=== PATIENT | male | born 1950 | race Caucasian/White ===

== ENCOUNTER 2019-06-20 10:57 | Inpatient (IN) ==
[~2019-06-20 10:57] MED LIST: IPRATROPIUM/ALBUTEROL 3 ML AMPUL.NEB NEB PRN; SCOPOLAMINE 1 PATCH PATCH TOPICAL PRN; ceFAZolin 2 GM in DEXTROSE 5% IN WATER 50 ML IV SCH
[2019-06-20 11:33] LABS: POC Blood Urea Nitrogen 35 mg/dl (8-23); POC CO2 21 mmol/L (22-30); POC Calcium, Ionized 1.13 mmol/L (1.16-1.32); POC Chloride 104 mmol/L (96-108); POC Creatinine 1.2 mg/dl (0.7-1.2); POC Glucose, Random 92 mg/dL (70-105); POC Potassium 5.1 mmol/L (3.3-5.1); POC Sodium 136 mmol/L (133-145)
[2019-06-20 11:59] LABS: Appearance,Urine CLEAR; Bilirubin,Urine NEG (NEG); Color,Urine YELLOW; Culture Indicated,Urine NO; Glucose,Urine (UA) NEGATIVE (NEG); Ketones,Urine NEG (NEG); Leukocyte Esterase,Urine NEG /uL (NEG); Nitrate,Urine NEG (NEG); Protein,Urine NEG (NEG); Specific Gravity,Urine 1.014 (1.000-1.035); Urine Blood NEG mg/dL (<0.03); Urobilinogen,Urine NEG (NEG)
[2019-06-20] MEDS ORDERED: LIDOCAINE HCL/PF 100 MG/5 ML SYRINGE IV ONE (13:28)
[2019-06-20] MEDS ORDERED: TRANEXAMIC ACID 1,000 MG/10 ML VIAL IV ONE (13:28)
[2019-06-20] MEDS ORDERED: ONDANSETRON 4 MG/2 ML VIAL IV ONE (13:28)
[2019-06-20] MEDS ORDERED: DEXAMETHASONE 10 MG/ML VIAL IV ONE (13:28)
[2019-06-20] MEDS ORDERED: KETAMINE 100 MG/ML ML IV ONE (13:28)
[2019-06-20] MEDS ORDERED: GLYCOPYRROLATE 0.2 MG/ML VIAL IV ONE (13:28)
[2019-06-20] MEDS ORDERED: PROPOFOL 200 MG/20 ML VIAL IV ONE (13:28)
[2019-06-20] MEDS ORDERED: GENTAMICIN SULFATE 800 MG/20 ML VIAL IR ONE (14:02)
[2019-06-20] MEDS ORDERED: BUPIVACAINE 0.5% 50 ML VIAL IJ ONE (14:04)
[2019-06-20] MEDS ORDERED: NALOXONE HCL 0.4 MG/ML VIAL IV PRN (14:14)
[2019-06-20] MEDS ORDERED: METHOCARBAMOL 1,000 MG/10 ML VIAL IV PRN (14:14)
[2019-06-20] MEDS ORDERED: BENZOCAINE/MENTHOL 1 LOZENGE PO PRN (14:14)
[2019-06-20] MEDS ORDERED: IPRATROPIUM/ALBUTEROL 3 ML AMPUL.NEB NEB PRN (14:14)
[2019-06-20] MEDS ORDERED: fentaNYL 100 MCG/2 ML VIAL IV PRN (14:14)
[2019-06-20] MEDS ORDERED: FLUMAZENIL 0.1 MG/ML ML IV PRN (14:14)
[2019-06-20] MEDS ORDERED: ACETAMINOPHEN 1,000 MG/100 ML BOTTLE IV ONE (14:14)
[2019-06-20] MEDS ORDERED: LACTATED RINGERS 250 ML IV PRN (14:14)
[2019-06-20] MEDS ORDERED: LACTATED RINGERS 1,000 ML IV SCH (14:15)
--- NOTE | 2019-06-20 14:28 | Brief Operative Note ---
Date of procedure: 06/20/19 Pre-op diagnosis: chronic ulceration foot and heel left Post-op diagnosis: same Procedure: Left BK amputation Grafts/Implants: No Anesthesia: JENNYFER Surgeon: Barrett Abreu Wastewater Superintendent: Rakan Sanchez Estimated blood loss (cc): 50 Tourniquet Time (Minutes): 12 Specimens Removed/Pathology: none sent Condition: stable Disposition: PACU
[2019-06-20] MEDS ORDERED: 0.9 % SODIUM CHLORIDE 1,000 ML BAG IV SCH (14:30)
[2019-06-20] MEDS ORDERED: ceFAZolin 2 GM in DEXTROSE 5% IN WATER 50 ML IV SCH (14:30)
--- NOTE | 2019-06-20 15:31 | Operative Note ---
DATE OF OPERATION: 06/20/2019 PREOPERATIVE DIAGNOSIS: Chronic ulceration and infection, left forefoot and left heel. POSTOPERATIVE DIAGNOSIS: Chronic ulceration and infection, left forefoot and left heel. OPERATION: Left wniqp-cig-qape amputation. SURGEON: Barrett Abreu M.D. ANIMAL CARE ASSISTANT: Rakan Sanchez PA-C. This provider's expertise and technical skill were required throughout the case. The PA assisted with preoperative coordination, intraoperative retraction, wound closure, dressing and splint application, as well as postoperative documentation and care coordination. ANESTHESIA: General. ESTIMATED BLOOD LOSS: 50 mL TOURNIQUET TIME: 12 minutes. SUMMARY OF PROCEDURE: The patient was placed on the operating room table. All bony prominences were padded. He was intubated, and prepped and draped. A modified fishmouth incision was made over the proximal tibia, preserving about 4 fingerbreadths of bone below the tibial tubercle. Incision was taken down directly to the bone anteriorly. The dorsal/anterior flap was elevated. The osteotomies were outlined and then made. The fibula was cut about a cm above the tibia. An anterior chamfer cut was taken off the tibia. The posterior soft tissue cut was made and in oblique fashion parallel to the skin cut. The leg was then removed at this point. The popliteal artery was identified and suture ligated. The sciatic nerve was identified, injected and then cut above the level of the bone. The injection was 0.5% Marcaine. The tourniquet was let down. All bleeding points were coagulated. Two drill holes were made in the anterior tibia. 0 Vicryls were then used to myodese the posterior flap using the sutures and tying them. Several 0 Vicryls were also used to reapproximate the anterior fascia to the superficial posterior fascia. The subcutaneous tissue was then closed with interrupted buried 2-0 Monocryl. The skin was then closed with simple and mattress sutures of 2-0 Prolene. A sterile compressive dressing was applied. This was then followed by the application of a wound V.A.C. and finally a knee immobilizer. The sponge, needle count was correct. The patient tolerated the procedure well and was taken to the recovery room in stable condition. TJF:jaja Job ID: [id number] Doc ID: [id number] Barrett Abreu MD
[2019-06-20] MEDS: 0.9 % SODIUM CHLORIDE 1,000 ML IV SCH (15:55)
[2019-06-20] MEDS ORDERED: BISACODYL 10 MG SUPP.RECT PR PRN (16:46)
[2019-06-20] MEDS ORDERED: NON FORMULARY MEDICATION 1 DOSE MISCELL (Glucagon,Human Recombinant [Glucagon Emergency Ki IJ PRN (16:46)
[2019-06-20] MEDS ORDERED: ACETAMINOPHEN 500 MG TABLET PO PRN (16:46)
[2019-06-20] MEDS ORDERED: HYDROcodone/APAP 5/325MG TABLET PO PRN (16:46)
[2019-06-20] MEDS ORDERED: DEXTROSE 50% 50 ML VIAL IV PRN (17:08)
[2019-06-20] MEDS: CARVEDILOL 12.5 MG TABLET PO SCH (17:30)
[2019-06-20] MEDS: INSULIN LISPRO 1 UNIT/0.01 ML UNIT SQ SCH ×2 (17:32→22:58)
[2019-06-20] MEDS ORDERED: INSULIN GLARGINE, HUMAN 1 UNIT/0.01 ML SQ SCH (21:00)
[2019-06-20] MEDS ORDERED: ceFAZolin 1 GM VIAL IV ONE (21:00)
[2019-06-20] MEDS: NITROGLYCERIN 0.4 MG TAB.SUBL SL PRN ×3 (21:55→23:15)
[2019-06-20] MEDS ORDERED: 0.9 % SODIUM CHLORIDE 1,000 ML IV ONE (22:31)
[2019-06-20] MEDS: ATORVASTATIN 20 MG TABLET PO SCH (22:32)
[2019-06-20] MEDS: DOCUSATE SODIUM 100 MG CAPSULE PO SCH (22:34)
[2019-06-20] MEDS: DORZOLAMIDE 2% OPHTH DROPS 10ML BOTTLE OD SCH (22:40)
[2019-06-20] MEDS ORDERED: ASPIRIN 81 MG TAB.CHEW CHEWED ONE (22:42)
[2019-06-20] MEDS ORDERED: ASPIRIN 81 MG TAB.CHEW ONE (22:45)
[2019-06-20] MEDS ORDERED: ENOXAPARIN 40 MG/0.4 ML SYRINGE ONE (22:45)
[2019-06-20] MEDS: ENOXAPARIN 40 MG/0.4 ML SYRINGE SQ SCH (22:51)
--- NOTE | 2019-06-20 23:10 | Internal Medicine Consult Note ---
Medical - CN: HPI - Data of Consult Patient: new to practice Consult date: 06/20/19 Primary Care Provider: Casey Young - Consult Narrative Reason for consult: chest pain and left arm pain History of present illness: Mr. Berumen is a 68 year old M with diabetes and hypertension. Remote smoking history. 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 I was called by Dr. Abreu to evaluate chest pain. The pt had sbp 115 and had complaint left arm pain and left chest pain. He had 6/10 pain and pallor. No sweating or diff breathing. The pt took 2 NTG and pain dropped to 3/10 but he had hypotension with sbp 80. Pt started on saline bolus 1L. EKG showed old septal CT but also ST seg elevation inferior lead III. 50 mins later EKG repeated and including additional RV leads and NSSTTW changes but not meet criteria for infarct. Pain improved further 2/10 but then 10 mins later again 6/10. Pt on bolus now and has received ASA 325 mg in addition to his usual plavix. Also given 40mg lovenox. additional NTG being given now. CC: Barrett Abreu - Constitutional Constitutional: Present: as per HPI - Cardiovascular Cardiovascular: Present: chest pain at rest (occurs at rest last about a month ago. Had hx of angiogram. no stents. last echo 2014 no WMA), claudication, radiating jaw, neck or arm pain Additional comments: hx in left leg with gangrene now tx with BKA - Gastrointestinal Gastrointestinal: Absent: abdominal pain, change in bowel habits, diarrhea, melena, nausea, vomiting - Musculoskeletal Musculoskeletal: Present: as per HPI - Neurological Neurological: Present: other (hx CVA with left side dysfunction) - Endocrine Endocrine: Present: as per HPI - Hematologic/Lymphatic Hematologic/Lymphatic: Absent: easy bleeding, easy bruising Medical - CN: PMH Smoking status: Former smoker Medical - CN: Meds Home Medications Medication Instructions Recorded Confirmed Type Accu-Chek 1 each FS ACHS #30 strip 04/13/15 06/20/19 Rx Docusate Sodium [Colace] 100 mg PO BID #60 capsule 04/13/15 06/20/19 Rx HYDROcodone/APAP 5/325MG [[place] 1 tab PO Q4HP PRN #14 tab 05/30/18 06/20/19 Rx 5-325Mg] Acetaminophen [Pain Relief] 500 mg PO PRN PRN 01/31/19 06/20/19 History Ascorbate Calcium [Vitamin C] 500 mg PO DAILY 01/31/19 06/20/19 History Atorvastatin [Lipitor] 10 mg PO HS 01/31/19 06/20/19 History Calcium Carbonate/Vitamin D3 1 each PO DAILY 01/31/19 06/20/19 History [Calcium 500-Vit D3 200 Tablet] Carvedilol [Coreg] 12.5 mg PO BIDCC 01/31/19 06/20/19 History Clopidogrel Bisulfate [Plavix] 75 mg PO DAILY 01/31/19 06/20/19 History Dorzolamide 2% Ophth Drops 1 gtt OD TID 01/31/19 06/20/19 History [Trusopt 2% Ophth Drops] Ergocalciferol (Vitamin D2) 10,000 unit PO DAILY 01/31/19 06/20/19 History [Vitamin D2] Escitalopram [Lexapro] 10 mg PO DAILY 01/31/19 06/20/19 History Isosorbide Dinitrate [Isordil] 10 mg PO BID 01/31/19 06/20/19 History Latanoprost/Pf [Latanoprost 0.005% 1 gtt OU HS 01/31/19 06/20/19 History Eye Drop] Lisinopril [Zestril] 10 mg PO DAILY 01/31/19 06/20/19 History Multivit-Min/Iron/Folic Acid/K 1 each PO DAILY 01/31/19 06/20/19 History [Adults Multivitamin Tablet] Nitroglycerin [Nitrostat] 0.4 mg SL Q5M PRN 01/31/19 06/20/19 History Timolol 0.25% Ophth Drops 1 gtt OD BID 01/31/19 06/20/19 History [Timoptic 0.25% Ophth Drops] metFORMIN HCL [Metformin HCl ER] 750 mg PO DAILY 01/31/19 06/20/19 History Mupirocin Oint 2% [Bactroban Oint 1 dose TOPICAL BID #1 tube 05/03/19 06/20/19 Rx 2%] Aripiprazole [Abilify] 2 mg PO DAILY 06/04/19 06/20/19 History Bisacodyl [Dulcolax] 10 mg [place] DAILYP PRN 06/04/19 06/20/19 History Dulaglutide [Trulicity] 1.5 mg SQ WEEKLY 06/04/19 06/20/19 History Furosemide [Lasix] 40 mg PO DAILY 06/04/19 06/20/19 History Glucagon,Human Recombinant 1 mg IJ PRN PRN 06/04/19 06/20/19 History [Glucagon Emergency Kit] Insulin Glargine, Human [Lantus] 2 unit SQ HS 06/04/19 06/20/19 History Magnesium Hydroxide [Milk of 2,400 mg PO PRN PRN 06/04/19 06/20/19 History Magnesia] Potassium Chloride [Klor-Con] 20 meq PO PRN PRN 06/04/19 06/20/19 History morphine SULFATE [Morphine Sulfate] 10 mg PO PRN PRN 06/04/19 06/20/19 History traMADol HCL [Ultram] 100 mg PO PRN PRN 06/04/19 06/20/19 History Allergies Allergy/AdvReac Type Severity Reaction Status Date / Time [facility] AdvReac Mild Diarrhea Verified 06/19/19 08:59 Medical - CN: Exam - Constitutional Vitals: Temp Pulse Resp BP Pulse Ox 97.4 F 91 H 16 100/65 97 06/20/19 20:00 06/20/19 20:00 06/20/19 20:00 06/20/19 20:00 06/20/19 20:00 General appearance: average body habitus, obese (mildly) - Respiratory Respiratory exam: Present: normal respiratory exam, CTAB. Absent: chest wall tenderness - Cardiovascular Cardiovascular exam: Present: normal rate and rhythm (distant heart sounds) - GI/Abdominal GI/Abdominal exam: Present: normal bowel sounds, soft. Absent: tenderness - Extremities Exam Extremities exam: Present: normal inspection. Absent: calf tenderness Additional comments: right foot 1+ DP pulse Left BKA noted - Neurological Exam Neurological exam: Present: alert, oriented X3. Absent: altered - Psychiatric Psychiatric exam: Present: normal affect, normal mood - Skin Skin exam: Present: dry, warm Medical - CN: Result - Labs CBC & Chem 7: 06/20/19 22:44 06/20/19 22:44 Labs: Urine 06/20/19 Range/Units 11:30 Urine Color Yellow Urine Appearance Clear Urine pH 6.0 (5.0-9.0) Ur Specific [place] 1.014 (1.000-1.035) Urine Protein Neg (NEG) mg/dL Urine Glucose (UA) Negative (NEG) mg/dL - EKG Data -: EKG Interpreted by Myself (EKG initially some ST seg elevation lead III 1 box. follow up EKG ok.) Medical - CN: A/P (1) Chest pain due to myocardial ischemia Problem details: pt poor historian but shows old Anteroseptal CT by EKG. Plan for troponin and Echocardiogram. IF WMA or elevated troponin will refer for angiogram. If negative pt can follow up with lexiscan nuclear test. start ASA, and low dose lovenox. resume plavix. Status: Acute (2) S/P BKA (below knee amputation) unilateral Problem details: due to good hemostasis and compressible wound will proceed with asa and lovenox for above consulting problem Status: Acute
[2019-06-20 23:51] LABS: Basophils # (Auto) 0.01 K/mcL (0.00-0.30); Basophils % (Auto) 0.1 % (0.0-2.0); Eosinophils # (Auto) 0 K/mcL (0.00-0.70); Eosinophils % (Auto) 0 % (0.0-7.0); Granulocytes % (Auto) 96.3 % (38.0-78.0); Hematocrit 28.7 % (40.1-51.0); Hemoglobin 9.2 g/dL (13.7-17.5); Lymphocytes # (Auto) 0.29 K/mcL (1.50-4.80); Lymphocytes % (Auto) 2.8 % (15.5-49.0); Mean Corpuscular HGB Conc 32.1 g/dL (31.0-36.0); Monocytes # (Auto) 0.08 K/mcL (0.10-0.90); Monocytes % (Auto) 0.8 % (1.0-12.0); Platelet Count 261 K/mcL (140-440); WBC 10.5 K/mcL (4.50-11.00)
[2019-06-21 00:06] LABS: Blood Urea Nitrogen 44 mg/dl (8-23); Calcium 8.2 mg/dl (8.6-10.4); Carbon Dioxide 20 mmol/L (22-30); Chloride 98 mmol/L (96-108); Glomerular Filtration Rate 51; Glucose 315 mg/dL (70-105)
[2019-06-21] MEDS ORDERED: METOPROLOL TARTRATE 5 MG/5 ML VIAL IV ONE (02:08)
[2019-06-21] MEDS: METOPROLOL TARTRATE 5 MG/5 ML VIAL IV SCH ×2 (02:20→02:27)
[2019-06-21] MEDS: 0.9 % SODIUM CHLORIDE 1,000 ML IV SCH ×4 (02:20→10:40)
--- NOTE | 2019-06-21 07:23 | Operative Note ---
DATE OF OPERATION: 06/20/2019 PREOPERATIVE DIAGNOSIS: Chronic ulceration and infection left heel and forefoot. POSTOPERATIVE DIAGNOSIS: Chronic ulceration and infection left heel and forefoot. OPERATION: Left lbtto-zkm-flce amputation. SURGEON: Barrett Abreu MD CENTRAL SUPPLY ASSISTANT: Rakan Sanchez PA-C. This provider's expertise and technical skill were required throughout the case. The PA assisted with preoperative coordination, intraoperative retraction, wound closure, dressing and splint application, as well as postoperative documentation and care coordination. ANESTHESIA: General. TOURNIQUET TIME: 12 minutes. ESTIMATED BLOOD LOSS: 50 mL SUMMARY OF PROCEDURE: General anesthesia was attained. The left leg was prepped and draped. A thigh-level tourniquet was put up. A modified fishmouth incision was made with the plan being to leave about 4 fingerbreadths of bone below the tibial tubercle. The incisions were taken down to bone. The anterior incision was then developed. A dorsal flap was made by elevating the flap off of the bone. The bone was resected at the apex of the incision 4 cm above the dorsal flap. This was done with a saw. An anterior bevel was cut off the tibia as well. The fibula was cut proximal to the tibia. I then used a cake knife to make a tapered posterior incision. The popliteal artery was then suture ligated. The sciatic nerve was identified, irrigated and infiltrated with 10 mL of Marcaine and then transected above the level of the bone cut. The tourniquet was let down. Bleeding was controlled with the Bovie. The wound was thoroughly irrigated. The fascia was reapproximated superficial posterior to the anterior fascia with 0 Vicryls. The subcutaneous tissue was closed with buried 2-0 Monocryls and the skin was closed with simple mattress sutures of 2-0 Prolene. A sterile compressive dressing was applied followed by a knee immobilizer. The sponge, needle count was correct. The patient tolerated the procedure well and was taken to the recovery room in stable condition. TJF:jaja Job ID: [id number] Doc ID: [id number] Barrett Abreu MD
[2019-06-21] MEDS: INSULIN LISPRO 1 UNIT/0.01 ML UNIT SQ SCH ×3 (07:59→16:51)
[2019-06-21] MEDS ORDERED: METFORMIN HCL 750 MG PO SCH (08:00)
[2019-06-21] MEDS ORDERED: FUROSEMIDE 20 MG TABLET PO SCH (09:00)
[2019-06-21 09:43] LABS: ALT/SGPT 10 U/l (0-40); AST/SGOT 34 U/l (0-37); Albumin/Globulin Ratio 1.2 (1.0-2.3); Alkaline Phosphatase 84 U/L (39-117); Bilirubin,Total 0.2 mg/dL (0.0-1.0); Blood Urea Nitrogen 42 mg/dl (8-23); Calcium 8.2 mg/dl (8.6-10.4); Carbon Dioxide 20 mmol/L (22-30); Chloride 104 mmol/L (96-108); Globulin 2.5 gm/dL (2.2-3.7); Glomerular Filtration Rate 56; Glucose 229 mg/dL (70-105)
--- NOTE | 2019-06-21 10:28 | Orthopedic Progress Note ---
Subjective Patient information: Note initiated : 06/21/19 at 10:25 am Service Date, if different from initiated Date: [] Patient: Magdi Berumen 68 y/o M admitted on 06/20/19 for Left Below Knee Amputation with Application. Chief Complaint: [] Principal diagnosis: below the knee amputation Interval history: chest pain last night- being managed by Dr Grullon Objective Vital signs: Vital Signs Temp Pulse Resp BP Pulse Ox 06/21/19 06:43 99.3 F H 20 112/72 97 06/21/19 03:51 98.2 F 91 H 16 125/81 99 06/20/19 23:18 97.4 F 97 H 16 108/65 99 06/20/19 20:00 97.4 F 91 H 16 100/65 97 06/20/19 16:51 73 127/74 100 06/20/19 16:36 72 135/73 100 06/20/19 16:21 71 137/75 98 06/20/19 16:06 71 138/74 99 06/20/19 15:51 70 134/77 100 06/20/19 15:21 70 130/74 98 06/20/19 15:05 97.6 F 68 14 119/63 99 06/20/19 15:00 68 14 114/62 100 06/20/19 14:55 68 15 106/60 99 06/20/19 14:50 68 14 115/60 99 06/20/19 14:45 68 14 114/61 100 06/20/19 14:43 97.3 F 68 13 113/62 100 06/20/19 12:00 98.6 F 68 16 130/72 98 06/20/19 10:57 98.3 F 68 16 132/70 98 Intake and Output 06/20/19 06/21/19 06/21/19 21:59 05:59 13:59 Intake Total 1279 2278 Output Total 100 2 Balance 1179 2276 Intake: IV 219 2278 Sodium Chloride 0.9% 1,000 ml @ 2278 150 mls/hr IV .Q6H40M [facility] Rx#: [id number] Lactated Ringers 1,000 ml @ 20 119 mls/hr IV .Q24H [facility] Rx#: [id number] Oral 60 IV - Manual Only 1000 Output: # of times incontinent of urine 2 Estimated Blood Loss 100 Other: # Bowel Movements 2 Weight 198 lb 8 oz Intake & Output: Intake & Output 06/20/19 06/21/19 06/21/19 21:59 05:59 13:59 Intake Total 1279 2278 Output Total 100 2 Balance 1179 2276 Weight 198 lb 8 oz Intake: IV 219 2278 Sodium Chloride 0.9% 1,000 ml @ 2278 150 mls/hr IV .Q6H40M [facility] Rx#: [id number] Lactated Ringers 1,000 ml @ 20 119 mls/hr IV .Q24H [facility] Rx#: [id number] Oral 60 IV - Manual Only 1000 Output: # of times incontinent of urine 2 Estimated Blood Loss 100 Other: # Bowel Movements 2 Dressing: Yes clean, Yes dry, Yes intact, Yes splint in place - Labs CBC & BMP: 06/21/19 02:21 06/21/19 08:43 Labs: 06/21/19 06/20/19 02:21 22:44 Hgb 9.2 L Hct 27.4 L 28.7 L Assessment and Plan (1) Amputation below knee Chest pain being evaluated, getting echo and blood work. Not stable for discharge right now Status: Acute
[2019-06-21] MEDS: CALCIUM W/VIT D3 500 MG TABLET PO SCH (10:37)
[2019-06-21] MEDS: ESCITALOPRAM 10 MG TABLET PO SCH (10:37)
[2019-06-21] MEDS: ASCORBIC ACID 500 MG TABLET PO SCH (10:37)
[2019-06-21] MEDS: CARVEDILOL 12.5 MG TABLET PO SCH ×2 (10:37→16:46)
[2019-06-21] MEDS: ENOXAPARIN 40 MG/0.4 ML SYRINGE SQ SCH (10:37)
[2019-06-21] MEDS: CLOPIDOGREL 75 MG TABLET PO SCH (10:37)
[2019-06-21] MEDS: LISINOPRIL 5 MG TABLET PO SCH (10:37)
[2019-06-21] MEDS: ARIPIPRAZOLE 2 MG PO SCH (10:39)
[2019-06-21] MEDS: DORZOLAMIDE 2% OPHTH DROPS 10ML BOTTLE OD SCH ×3 (10:39→22:23)
[2019-06-21] MEDS: DOCUSATE SODIUM 100 MG CAPSULE PO SCH ×2 (10:40→22:23)
[2019-06-21] MEDS: ISOSORBIDE DINITRATE 10 MG TABLET PO SCH (10:54)
[2019-06-21] MEDS: MUPIROCIN OINT 2% 22GM NARES SCH (10:55)
[2019-06-21] MEDS ORDERED: MAGNESIUM HYDROXIDE 30 ML ORAL.SUSP PO PRN (13:52)
--- NOTE | 2019-06-21 13:58 | Internal Med Progress Note ---
Medical - PN: Subj Patient information: Note initiated : 06/21/19 at 1:56 pm Service Date, if different from initiated Date: [] Patient: Magdi Berumen 68 y/o M admitted on 06/20/19 for Left Below Knee Amputation with Application. Chief Complaint: [] Interval history: Patient chest pain yesterday recurred several times at 6/10 severity and was slow to resolve requiring nitroglycerin, beta-faviola, IV fluid and oxygen. This morning the patient is completely chest pain-free. He had similar episode of chest pain and May 2018 and elected not to have evaluation at that time. He went home to [facility] where he told the emergency physician that he was okay with dying this year he has underwent left BKA due to gangrene of the leg. He is hoping to get a prosthesis to walk. He continues to want DO NOT RESUSCITATE status and wants limited interventions regarding his heart. Thus far we discussed options and if he does not have further chest pain he does not want to seek intervention. He understands that if he has recurring chest pain that we cannot resolve then cardiology evaluation with either angiogram or at least noninvasive nuclear stress study would be appropriate at that time. His chest pain does appear to be coronary artery disease (angina We reviewed his echo which shows EF down to 29% from normal in 2014. Patient retired in 2011. We conclude that he had an TN between 2014 and 2018 when documented EKG shows the last large anteroseptal infarct seen on current EKGs - Constitutional Vitals: Vital Signs Temp Pulse Resp BP Pulse Ox 99.3 F H 91 H 20 112/72 97 06/21/19 06:43 06/21/19 03:51 06/21/19 06:43 06/21/19 06:43 06/21/19 06:43 Period Temp Pulse Resp BP Sys/Marrufo Pulse Ox Last 24 Hr 97.3 F-99.3 F 68-97 13-20 100-138/60-81 97-100 Intake and Output 06/20/19 06/21/19 06/21/19 21:59 05:59 13:59 Intake Total 1279 2278 Output Total 100 2 Balance 1179 2276 Weight 198 lb 8 oz Intake & Output: Intake & Output 06/20/19 06/21/19 06/21/19 21:59 05:59 13:59 Intake Total 1279 2278 Output Total 100 2 Balance 1179 2276 Weight 198 lb 8 oz Intake: IV 219 2278 Sodium Chloride 0.9% 1,000 ml @ 2278 150 mls/hr IV .Q6H40M [facility] Rx#: [id number] Lactated Ringers 1,000 ml @ 20 119 mls/hr IV .Q24H [facility] Rx#: [id number] Oral 60 IV - Manual Only 1000 Output: # of times incontinent of urine 2 Estimated Blood Loss 100 Other: # Bowel Movements 2 General appearance: average body habitus, no acute distress - Neck Neck exam: Present: normal inspection - Respiratory Respiratory exam: Present: normal respiratory exam, CTAB - Cardiovascular Cardiovascular exam: Present: normal rate and rhythm. Absent: diastolic murmur, systolic murmur, tachycardia - GI/Abdominal GI/Abdominal exam: Present: normal bowel sounds, soft. Absent: tenderness - Extremities Exam Additional comments: Left BKA noted right foot dorsal pedal pulse 1+ Medical - PN: Obj Da - Labs CBC & Chem 7: 06/21/19 02:21 06/21/19 08:43 Labs: Abnormal Lab Results 06/21/19 06/21/19 06/21/19 08:43 08:43 02:21 RBC Hgb Hct POC Hct RDW MPV Gran % Lymph % (Auto) [place] % (Auto) Gran # Lymph # (Auto) [place] # (Auto) Sodium Potassium Carbon Dioxide 20 L POC Total CO2 POC BUN BUN 42 H Creatinine 1.3 H Glucose 229 H Calcium 8.2 L POC WB Ioniz Calcium Troponin T 0.75 H* 0.05 H* Total Protein 5.5 L Albumin 3.0 L 06/21/19 06/20/19 06/20/19 02:21 22:44 22:44 RBC Hgb Hct 27.4 L POC Hct RDW MPV Gran % Lymph % (Auto) [place] % (Auto) Gran # Lymph # (Auto) [place] # (Auto) Sodium 132 L Potassium 5.6 H Carbon Dioxide 20 L POC Total CO2 POC BUN BUN 44 H Creatinine 1.4 H Glucose 315 H Calcium 8.2 L POC WB Ioniz Calcium Troponin T 0.05 H* Total Protein Albumin 06/20/19 06/20/19 22:44 11:26 RBC 3.30 L Hgb 9.2 L Hct 28.7 L POC Hct 29.0 L RDW 15.0 H MPV 11.0 H Gran % 96.3 H Lymph % (Auto) 2.8 L [place] % (Auto) 0.8 L Gran # 10.09 H Lymph # (Auto) 0.29 L [place] # (Auto) 0.08 L Sodium Potassium Carbon Dioxide POC Total CO2 21 L POC BUN 35 H BUN Creatinine Glucose Calcium POC WB Ioniz Calcium 1.13 L Troponin T Total Protein Albumin Meds: Medications Acetaminophen (Tylenol) 500 mg PO DAILYP PRN; Protocol PRN Reason: Pain Hydrocodone Bitart/Acetaminophen ([place] 10/325mg) 1 - 2 tab PO Q6HP PRN; Protocol PRN Reason: Per Pain Protocol Ascorbic Acid (Vitamin C) 500 mg PO DAILY [facility] Last Admin: 06/21/19 10:37 Dose: 500 mg Documented by: Atorvastatin Calcium (Lipitor) 10 mg PO HS [facility] Last Admin: 06/20/19 22:32 Dose: 10 mg Documented by: Bisacodyl (Dulcolax) 10 mg [place] DAILYP PRN PRN Reason: Constipation Calcium/Vitamin D (Calcium W/Vit D3) 500 mg PO DAILY [facility] Last Admin: 06/21/19 10:37 Dose: 500 mg Documented by: [facility]il[facility] ([facility]g) [facility] Clopidogrel Bisulfate (Plavix) 75 mg PO DAILY [facility] Last Admin: 06/21/19 10:37 Dose: 75 mg Documented by: Dextrose (Dextrose 50%) 25 ml IV UD PRN PRN Reason: Hypoglycemia Diagnostic Test (Pha) (Accu-Chek) 1 each FS ACHS [facility] Last Admin: 06/21/19 12:11 Dose: 1 each Documented by: Docusate Sodium (Colace) 100 mg PO BID [facility] Last Admin: 06/21/19 10:40 Dose: Not Given Documented by: Dorzolamide HCl (Trusopt 2% Ophth Drops) 1 gtt OD TID [facility] Last Admin: 06/21/19 10:39 Dose: Not Given Documented by: Enoxaparin Sodium (Lovenox) 40 mg SQ DAILY [facility] Last Admin: 06/21/19 10:37 Dose: 40 mg Documented by: Escitalopram Oxalate (Lexapro) 10 mg PO DAILY [facility] Last Admin: 06/21/19 10:37 Dose: 10 mg Documented by: Insulin Human Lispro (Humalog) 0 unit SQ ACHS [facility]; Protocol Last Admin: 06/21/19 07:59 Dose: 6 unit Documented by: Iron Carb/Multivit/[place]/Folic Acid (Multivitamin W/Minerals) 1 tab PO DAILY [facility] Isosorbide Dinitrate (Isordil) 10 mg PO BID [facility] Last Admin: 06/21/19 10:54 Dose: 10 mg Documented by: Latanoprost (Xalatan Ophth Drops) 1 gtt OU HS [facility] Lisinopril (Zestril) 10 mg PO DAILY [facility] Last Admin: 06/21/19 10:37 Dose: 10 mg Documented by: Magnesium Hydroxide (Milk Of Magnesia) 30 ml PO HSP PRN PRN Reason: Constipation Morphine Sulfate (Morphine) 2 - 6 mg IV Q1HP PRN; Protocol PRN Reason: Per Pain Protocol Last Admin: 06/21/19 00:22 Dose: 2 mg Documented by: Mupirocin (Bactroban Oint 2%) 1 dose NARES BID [facility] Last Admin: 06/21/19 10:55 Dose: 1 dose Documented by: Nitroglycerin (Nitrostat) 0.4 mg SL Q5M PRN PRN Reason: Chest Pain Last Admin: 06/20/19 23:15 Dose: 0.4 mg Documented by: Non-Formulary Medication (Dulaglutide [Trulicity]) 1.5 mg SQ WEEKLY [facility] Metformin Hcl Er 750 (Mg Tablet) 1 dose PO [facility] Last Admin: 06/21/19 10:38 Dose: Not Given Documented by: Aripiprazole [ (Abilify] 2 Mg Tablet) 1 dose PO DAILY [facility] Last Admin: 06/21/19 10:39 Dose: Not Given Documented by: Timolol Maleate (Timoptic 0.25% Ophth Drops) 1 gtt OD BID [facility] Vitamin D (Vitamin D3) 10,000 unit PO DAILY [facility] Medical - PN: A/P - Time Spent With Patient Total time spent is greater than 50% in coordination of care (as documented) at patient's floor/unit and/or counseling patient: Greater than 35 minutes (1) Chest pain due to myocardial ischemia Problem details: pt poor historian but shows old Anteroseptal TN by EKG. Plan for troponin and Echocardiogram. Troponin reached 0.75 will trend to a peak. This appears to be gwen-infarct ischemia or small vessel problem based on mild EKG abnormalities beyond the large noted old infarct. The patient has large anteroseptal infarct by echocardiogram. We discussed that angiogram would be appropriate if he desires coronary revascularization. He is not sure that he wants that. If he desires conservative therapy then we can treat him medically as long as he is able to be managed medically. Recurring chest pain requiring hospitalization would necessitate cardiology investigation with angiogram or at minimum noninvasive stress test with nuclear imaging Status: Acute Current Visit: Yes (2) S/P BKA (below knee amputation) unilateral Problem details: due to good hemostasis and compressible wound will proceed with asa and lovenox for above consulting problem. Plan discussed with Dr. Abreu this morning Status: Acute Current Visit: Yes (3) Diabetes mellitus, type 2 Problem details: Creatinine elevated making metformin more risky Status: Chronic Assessment and plan: We will hold metformin for now. Continue with sliding scale insulin and diabetic diet Current Visit: No Medical - PN: Qual - VTE Deep Vein Thrombosis/Pulmonary Embolism Present on Admission: No
[2019-06-21] MEDS: HYDROcodone/APAP 10/325MG TABLET PO PRN (16:46)
[2019-06-21] MEDS ORDERED: NALOXONE HCL 0.4 MG/ML VIAL IV PRN (19:07)
[2019-06-21] MEDS ORDERED: 0.9 % SODIUM CHLORIDE 500 ML IV ONE (19:07)
--- NOTE | 2019-06-21 19:54 | Internal Med Progress Note ---
Medical - PN: Subj Patient information: Note initiated : 06/21/19 at 7:51 pm Service Date, if different from initiated Date: [] Patient: Magdi Berumen 68 y/o M admitted on 06/20/19 for Left Below Knee Amputation with Application. Chief Complaint: [] Interval history: called to rapid response. Pt hard to arouse and sbp 75. Pt responded to IVF and did arouse. ABG ok ph 7.35, PCO2 45 PO2 82. EKG sinus and not changed. old anterior infarct. Pt initially drowsy and thought he was at [facility]. Pupil 7mm r 3mm left. repeat questioning pt oriented to [facility] may and BK. slow responses initially. - Constitutional Vitals: Vital Signs Temp Pulse Resp BP Pulse Ox 98.1 F 70 10 L 71/40 97 06/21/19 19:23 06/21/19 19:23 06/21/19 19:23 06/21/19 19:23 06/21/19 19:23 Period Temp Pulse Resp BP Sys/Marrufo Pulse Ox Last 24 Hr 97.4 F-99.3 F 70-97 10-20 71-125/40-81 96-100 Intake and Output 06/21/19 06/21/19 06/21/19 05:59 13:59 21:59 Intake Total 2278 1000 Output Total 2 Balance 2276 1000 Weight 208 lb Patient Weight 06/22/19 05:59 Weight 208 lb Intake & Output: Intake & Output 06/21/19 06/21/19 06/21/19 05:59 13:59 21:59 Intake Total 2278 1000 Output Total 2 Balance 2276 1000 Weight 208 lb Intake: IV 2278 1000 Sodium Chloride 0.9% 1,000 ml @ 2278 1000 150 mls/hr IV .Q6H40M BLAS Rx#: [id number] Output: # of times incontinent of urine 2 Other: Meal Breakfast Percent of Meal Consumed 25% Urine Color Bright Yellow Urine Odor Strong # Voids 2 # Bowel Movements 2 - Eye Pupils: Present: unequal Additional comments: 7mm right 3mm left - Respiratory Respiratory exam: Present: normal respiratory exam - Cardiovascular Cardiovascular exam: Present: normal rate and rhythm - Neurological Exam Neurological exam: Present: alert Additional comments: speech clear but befuddled initially JAUN - Psychiatric Psychiatric exam: Present: flat affect, normal mood Medical - PN: Obj Da - Labs CBC & Chem 7: 06/21/19 02:21 06/21/19 08:43 Labs: Abnormal Lab Results 06/21/19 06/21/19 06/21/19 17:38 08:43 08:43 RBC Hgb Hct POC Hct RDW MPV Gran % Lymph % (Auto) [place] % (Auto) Gran # Lymph # (Auto) [place] # (Auto) Sodium Potassium Carbon Dioxide 20 L POC Total CO2 POC BUN BUN 42 H Creatinine 1.3 H Glucose 229 H Calcium 8.2 L POC WB Ioniz Calcium Troponin T 1.91 H* 0.75 H* Total Protein 5.5 L Albumin 3.0 L 06/21/19 06/21/19 06/20/19 02:21 02:21 22:44 RBC Hgb Hct 27.4 L POC Hct RDW MPV Gran % Lymph % (Auto) [place] % (Auto) Gran # Lymph # (Auto) [place] # (Auto) Sodium Potassium Carbon Dioxide POC Total CO2 POC BUN BUN Creatinine Glucose Calcium POC WB Ioniz Calcium Troponin T 0.05 H* 0.05 H* Total Protein Albumin 06/20/19 06/20/19 06/20/19 22:44 22:44 11:26 RBC 3.30 L Hgb 9.2 L Hct 28.7 L POC Hct 29.0 L RDW 15.0 H MPV 11.0 H Gran % 96.3 H Lymph % (Auto) 2.8 L [place] % (Auto) 0.8 L Gran # 10.09 H Lymph # (Auto) 0.29 L [place] # (Auto) 0.08 L Sodium 132 L Potassium 5.6 H Carbon Dioxide 20 L POC Total CO2 21 L POC BUN 35 H BUN 44 H Creatinine 1.4 H Glucose 315 H Calcium 8.2 L POC WB Ioniz Calcium 1.13 L Troponin T Total Protein Albumin Meds: Medications Acetaminophen (Tylenol) 500 mg PO DAILYP PRN; Protocol PRN Reason: Pain Hydrocodone Bitart/Acetaminophen ([place] 10/325mg) 1 - 2 tab PO Q6HP PRN; Protocol PRN Reason: Per Pain Protocol Last Admin: 06/21/19 16:46 Dose: 1 tab Documented by: Ascorbic Acid (Vitamin C) 500 mg PO DAILY [facility] Last Admin: 06/21/19 10:37 Dose: 500 mg Documented by: Atorvastatin Calcium (Lipitor) 10 mg PO [facility] Last Admin: 06/20/19 22:32 Dose: 10 mg Documented by: Bisacodyl (Dulcolax) 10 mg [place] DAILYP PRN PRN Reason: Constipation Calcium/Vitamin D (Calcium W/Vit D3) 500 mg PO DAILY [facility] Last Admin: 06/21/19 10:37 Dose: 500 mg Documented by: [facility] Last Admin: 06/21/19 16:46 Dose: 18.75 mg Documented by: Clopidogrel Bisulfate (Plavix) 75 mg PO DAILY [facility] Last Admin: 06/21/19 10:37 Dose: 75 mg Documented by: Dextrose (Dextrose 50%) 25 ml IV UD PRN PRN Reason: Hypoglycemia Diagnostic Test (Pha) (Accu-Chek) 1 each FS [facility] Last Admin: 06/21/19 16:49 Dose: 1 each Documented by: Docusate Sodium (Colace) 100 mg PO BID [facility] Last Admin: 06/21/19 10:40 Dose: Not Given Documented by: Dorzolamide HCl (Trusopt 2% Ophth Drops) 1 gtt OD TID [facility] Last Admin: 06/21/19 13:57 Dose: Not Given Documented by: Enoxaparin Sodium (Lovenox) 40 mg SQ DAILY [facility] Last Admin: 06/21/19 10:37 Dose: 40 mg Documented by: Escitalopram Oxalate (Lexapro) 10 mg PO DAILY [facility] Last Admin: 06/21/19 10:37 Dose: 10 mg Documented by: Sodium Chloride (Sodium Chloride 0.9%) 500 mls @ 0 mls/hr IV .Q0M ONE Stop: 06/21/19 19:08 Insulin Human Lispro (Humalog) 0 unit SQ [facility]; Protocol Last Admin: 06/21/19 16:51 Dose: Not Given Documented by: Iron Carb/Multivit/[place]/Folic Acid (Multivitamin W/Minerals) 1 tab PO DAILY S Isosorbide Dinitrate (Isordil) 10 mg PO BID [facility] Last Admin: 06/21/19 10:54 Dose: 10 mg Documented by: Latanoprost (Xalatan Ophth Drops) 1 gtt OU HS [facility] Lisinopril (Zestril) 10 mg PO DAILY [facility] Last Admin: 06/21/19 10:37 Dose: 10 mg Documented by: Magnesium Hydroxide (Milk Of Magnesia) 30 ml PO HSP PRN PRN Reason: Constipation Morphine Sulfate (Morphine) 2 - 6 mg IV Q1HP PRN; Protocol PRN Reason: Per Pain Protocol Last Admin: 06/21/19 00:22 Dose: 2 mg Documented by: Mupirocin (Bactroban Oint 2%) 1 dose NARES BID [facility] Last Admin: 06/21/19 10:55 Dose: 1 dose Documented by: Naloxone HCl (Narcan) 0.4 mg IV ONCE PRN PRN Reason: Opiate Reversal Nitroglycerin (Nitrostat) 0.4 mg SL Q5M PRN PRN Reason: Chest Pain Last Admin: 06/20/19 23:15 Dose: 0.4 mg Documented by: Aripiprazole [ (Abilify] 2 Mg Tablet) 1 dose PO DAILY [facility] Last Admin: 06/21/19 10:39 Dose: Not Given Documented by: Dulaglutide [ Trulicity] 1.5 Mg/0. 5 Ml Pen 1 dose SC Sa@0900 [facility] Timolol Maleate (Timoptic 0.25% Ophth Drops) 1 gtt OD BID [facility] Vitamin D (Vitamin D3) 10,000 unit PO DAILY [facility] Medical - PN: A/P - Time Spent With Patient Total time spent is greater than 50% in coordination of care (as documented) at patient's floor/unit and/or counseling patient: Greater than 35 minutes (1) Right pontine CVA Problem details: due to new neurologic symtoms and abnormal pupils repeated CT head. same old right pontine CVA. no bleed and no new stroke. Status: Resolved Current Visit: No (2) Chest pain due to myocardial ischemia Problem details: pt poor historian but shows old Anteroseptal ND by EKG. Plan for troponin and Echocardiogram. Troponin reached 0.75 will trend to a peak. This appears to be gwen-infarct ischemia or small vessel problem based on mild EKG abnormalities beyond the large noted old infarct. The patient has large anteroseptal infarct by echocardiogram. We discussed that angiogram would be appropriate if he desires coronary revascularization. He is not sure that he w ants that. If he desires conservative therapy then we can treat him medically as long as he is able to be managed medically. Recurring chest pain requiring hospitalization would necessitate cardiology investigation with angiogram or at minimum noninvasive stress test with nuclear imaging trop tonight 1.97 Status: Acute Current Visit: Yes (3) S/P BKA (below knee amputation) unilateral Problem details: due to good hemostasis and compressible wound will proceed with asa and lovenox for above consulting problem. Plan discussed with Dr. Abreu this morning Status: Acute Current Visit: Yes (4) Diabetes mellitus, type 2 Problem details: Creatinine elevated making metformin more risky Status: Chronic Assessment and plan: We will hold metformin for now. Continue with sliding scale insulin and diabetic diet Current Visit: No Medical - PN: Qual - VTE Deep Vein Thrombosis/Pulmonary Embolism Present on Admission: No
--- NOTE | 2019-06-21 19:56 | Cat Scan Report ---
History: Cardiopulmonary arrest and dilated pupil TECHNIQUE: The brain was imaged without contrast at 2.5 mm intervals. Radiation exposure was limited using dose reduction technology. FINDINGS: There is an old infarct with encephalomalacia anteriorly in the right side of the belly of the jade. It measures approximately 1 cm. No acute infarct is detected. There is no hemorrhage, cerebral edema or mass effect. Patient has mild atrophy predominantly involving the frontal and temporal lobes. The ventricles are normal in size. No abnormal extra-axial fluid collection is present. Comparison with the prior brain MRI done in 2014 shows the pontine infarct was not present at that time. IMPRESSION: Moderate-sized pontine infarct with encephalomalacia No acute abnormality Dr. Grullon was called with the results Interpreted and Authenticated by: Jasson Gutierrez 06/21/19
[2019-06-21] MEDS ORDERED: 0.9 % SODIUM CHLORIDE 1,000 ML IV SCH (20:30)
[2019-06-21] MEDS: LATANOPROST OPHTH DROPS 2.5ML BOTTLE OU SCH (22:23)
[2019-06-21] MEDS: TIMOLOL 0.25% OPHTH DROPS BOTTLE 5ML OD SCH (22:23)
[2019-06-22] MEDS: MUPIROCIN OINT 2% 22GM NARES SCH ×3 (01:00→20:56)
[2019-06-22] MEDS: ATORVASTATIN 20 MG TABLET PO SCH ×2 (01:00→20:56)
[2019-06-22] MEDS: ISOSORBIDE DINITRATE 10 MG TABLET PO SCH ×3 (01:00→20:56)
[2019-06-22] MEDS: INSULIN LISPRO 1 UNIT/0.01 ML UNIT SQ SCH ×4 (01:33→20:57)
[2019-06-22] MEDS: ESCITALOPRAM 10 MG TABLET PO SCH (11:00)
[2019-06-22] MEDS: CALCIUM W/VIT D3 500 MG TABLET PO SCH (11:00)
[2019-06-22] MEDS: ENOXAPARIN 40 MG/0.4 ML SYRINGE SQ SCH (11:00)
[2019-06-22] MEDS: VITAMIN D3 5,000 UNIT CAPSULE PO SCH (11:01)
[2019-06-22] MEDS: LISINOPRIL 5 MG TABLET PO SCH (11:01)
[2019-06-22] MEDS: CLOPIDOGREL 75 MG TABLET PO SCH (11:01)
[2019-06-22] MEDS: CARVEDILOL 12.5 MG TABLET PO SCH ×2 (11:02→17:59)
[2019-06-22] MEDS: DOCUSATE SODIUM 100 MG CAPSULE PO SCH ×2 (11:02→20:56)
[2019-06-22] MEDS: ASCORBIC ACID 500 MG TABLET PO SCH (11:02)
[2019-06-22] MEDS: MULTIVIT,THER IRON,CA,FA & MIN 1 TABLET PO SCH (11:02)
[2019-06-22] MEDS: ARIPIPRAZOLE 2 MG PO SCH (11:24)
[2019-06-22] MEDS: DORZOLAMIDE 2% OPHTH DROPS 10ML BOTTLE OD SCH ×3 (11:26→23:02)
[2019-06-22] MEDS: TIMOLOL 0.25% OPHTH DROPS BOTTLE 5ML OD SCH ×2 (11:26→23:01)
--- NOTE | 2019-06-22 11:46 | Orthopedic Progress Note ---
Subjective Patient information: Note initiated : 06/22/19 at 11:44 am Service Date, if different from initiated Date: [] Patient: Magdi Berumen 68 y/o M admitted on 06/20/19 for Left Below Knee Amputation with Application. Chief Complaint: [] no new ortho issues did have medical issues over night requiring attention stable at present Principal diagnosis: below the knee amputation Objective Vital signs: Vital Signs Temp Pulse Resp BP Pulse Ox 06/22/19 07:37 98.1 F 75 14 103/68 96 06/21/19 23:31 97 06/21/19 20:39 74/48 06/21/19 20:33 78/53 06/21/19 20:24 97.5 F 77 11 L 84/53 97 06/21/19 19:23 98.1 F 70 10 L 71/40 97 06/21/19 16:00 97.4 F 85 20 95/57 98 06/21/19 12:00 98.0 F 75 20 112/60 100 Intake and Output 06/21/19 06/22/19 06/22/19 21:59 05:59 13:59 Intake Total 1500 Output Total 3 Balance 1497 Intake: IV 1500 Sodium Chloride 0.9% 1,000 ml @ 1000 500 mls/hr IV .Q2H [facility]AS Rx#: [id number] Sodium Chloride 0.9% 500 ml @ 500 Wide Open IV .Q0M ONE Rx#: [id number] Output: # of times incontinent of urine 3 Other: Meal Breakfast Percent of Meal Consumed 25% # Voids 2 # of times incontinent of 1 Bowels Weight 208 lb Intake & Output: Intake & Output 06/21/19 06/22/19 06/22/19 21:59 05:59 13:59 Intake Total 1500 Output Total 3 Balance 1497 Weight 208 lb Intake: IV 1500 Sodium Chloride 0.9% 1,000 ml @ 1000 500 mls/hr IV .Q2H BLAS Rx#: [id number] Sodium Chloride 0.9% 500 ml @ 500 Wide Open IV .Q0M ONE Rx#: [id number] Output: # of times incontinent of urine 3 Other: Meal Breakfast Percent of Meal Consumed 25% # Voids 2 # of times incontinent of 1 Bowels Dressing: Yes clean, Yes dry, Yes intact - Labs CBC & BMP: 06/21/19 02:21 06/21/19 08:43 Labs: 06/21/19 06/20/19 02:21 22:44 Hgb 9.2 L Hct 27.4 L 28.7 L Assessment and Plan - Narrative A/P Narrative: post bka no new issues continue rehab, dc planning
[2019-06-22] MEDS: HYDROcodone/APAP 10/325MG TABLET PO PRN ×3 (13:55→21:12)
--- NOTE | 2019-06-22 19:13 | Internal Med Progress Note ---
Medical - PN: Subj Patient information: Note initiated : 06/22/19 at 7:10 pm Service Date, if different from initiated Date: [] Patient: Magdi Berumen 68 y/o M admitted on 06/20/19 for Left Below Knee Amputation with Application. Chief Complaint: [] Interval history: Last night the patient was very weak and lethargic. His troponin as of yesterday had reached at 1.97 but had not peaked. Patient declined transfer for coronary intervention. He wants to have medical treatment with limited interventions. He does not want CPR. The patient today states he feels better. He is more energetic he has eaten. He does not have any chest pain. Patient is willing to resume physical therapy and I think that would be a good choice. - Constitutional Vitals: Vital Signs Temp Pulse Resp BP Pulse Ox 98.1 F 75 14 103/68 96 06/22/19 07:37 06/22/19 08:00 06/22/19 07:37 06/22/19 07:37 06/22/19 07:37 Period Temp Pulse Resp BP Sys/Marrufo Pulse Ox Last 24 Hr 97.5 F-98.1 F 70-77 10-14 71-103/40-68 96-97 Intake and Output 06/22/19 06/22/19 06/22/19 05:59 13:59 21:59 Intake Total 1500 Output Total 3 1 1 Balance 1497 -1 -1 Intake & Output: Intake & Output 06/22/19 06/22/19 06/22/19 05:59 13:59 21:59 Intake Total 1500 Output Total 3 1 1 Balance 1497 -1 -1 Intake: IV 1500 Sodium Chloride 0.9% 1,000 ml @ 1000 500 mls/hr IV .Q2H [facility] Rx#: [id number] Sodium Chloride 0.9% 500 ml @ 500 Wide Open IV .Q0M ONE Rx#: [id number] Output: # of times incontinent of urine 3 1 1 Other: Meal Lunch Dinner Percent of Meal Consumed 75% 25% Feeding Ability Needs Supervision Independent # of times incontinent of 1 Bowels General appearance: cooperative, no acute distress, obese - Respiratory Respiratory exam: Present: normal respiratory exam, CTAB - Cardiovascular Cardiovascular exam: Present: normal rate and rhythm - Extremities Exam Additional comments: Left BKA noted right leg no edema - Neurological Exam Neurological exam: Present: alert, oriented X3 - Psychiatric Psychiatric exam: Present: normal affect, normal mood Medical - PN: Obj Da - Labs CBC & Chem 7: 06/21/19 02:21 06/21/19 08:43 Labs: Abnormal Lab Results 06/21/19 06/21/19 06/21/19 17:38 08:43 08:43 RBC Hgb Hct POC Hct RDW MPV Gran % Lymph % (Auto) [place] % (Auto) Gran # Lymph # (Auto) [place] # (Auto) Sodium Potassium Carbon Dioxide 20 L POC Total CO2 POC BUN BUN 42 H Creatinine 1.3 H Glucose 229 H Calcium 8.2 L POC WB Ioniz Calcium Troponin T 1.91 H* 0.75 H* Total Protein 5.5 L Albumin 3.0 L 06/21/19 06/21/19 06/20/19 02:21 02:21 22:44 RBC Hgb Hct 27.4 L POC Hct RDW MPV Gran % Lymph % (Auto) [place] % (Auto) Gran # Lymph # (Auto) [place] # (Auto) Sodium Potassium Carbon Dioxide POC Total CO2 POC BUN BUN Creatinine Glucose Calcium POC WB Ioniz Calcium Troponin T 0.05 H* 0.05 H* Total Protein Albumin 06/20/19 06/20/19 06/20/19 22:44 22:44 11:26 RBC 3.30 L Hgb 9.2 L Hct 28.7 L POC Hct 29.0 L RDW 15.0 H MPV 11.0 H Gran % 96.3 H Lymph % (Auto) 2.8 L [place] % (Auto) 0.8 L Gran # 10.09 H Lymph # (Auto) 0.29 L [place] # (Auto) 0.08 L Sodium 132 L Potassium 5.6 H Carbon Dioxide 20 L POC Total CO2 21 L POC BUN 35 H BUN 44 H Creatinine 1.4 H Glucose 315 H Calcium 8.2 L POC WB Ioniz Calcium 1.13 L Troponin T Total Protein Albumin Meds: Medications Acetaminophen (Tylenol) 500 mg PO DAILYP PRN; Protocol PRN Reason: Pain Hydrocodone Bitart/Acetaminophen ([place] 10/325mg) 1 - 2 tab PO Q6HP PRN; Protocol PRN Reason: Per Pain Protocol Last Admin: 06/22/19 15:04 Dose: 1 tab Documented by: Ascorbic Acid (Vitamin C) 500 mg PO DAILY [facility] Last Admin: 06/22/19 11:02 Dose: 500 mg Documented by: Atorvastatin Calcium (Lipitor) 10 mg PO [facility] Last Admin: 06/22/19 01:00 Dose: Not Given Documented by: Bisacodyl (Dulcolax) 10 mg [place] DAILYP PRN PRN Reason: Constipation Calcium/Vitamin D (Calcium W/Vit D3) 500 mg PO DAILY [facility] Last Admin: 06/22/19 11:00 Dose: 500 mg Documented by: [facility] ([facility]g) [facility] Last Admin: 06/22/19 17:59 Dose: 18.75 mg Documented by: Clopidogrel Bisulfate (Plavix) 75 mg PO DAILY [facility] Last Admin: 06/22/19 11:01 Dose: 75 mg Documented by: Dextrose (Dextrose 50%) 25 ml IV UD PRN PRN Reason: Hypoglycemia Diagnostic Test (Pha) (Accu-Chek) 1 each FS [facility] Last Admin: 06/22/19 16:46 Dose: 1 each Documented by: Docusate Sodium (Colace) 100 mg PO BID [facility] Last Admin: 06/22/19 11:02 Dose: 100 mg Documented by: Dorzolamide HCl (Trusopt 2% Ophth Drops) 1 gtt OD TID [facility] Last Admin: 06/22/19 13:44 Dose: Not Given Documented by: Enoxaparin Sodium (Lovenox) 40 mg SQ DAILY [facility] Last Admin: 06/22/19 11:00 Dose: 40 mg Documented by: Escitalopram Oxalate (Lexapro) 10 mg PO DAILY [facility] Last Admin: 06/22/19 11:00 Dose: 10 mg Documented by: Insulin Human Lispro (Humalog) 0 unit SQ [facility]; Protocol Last Admin: 06/22/19 13:48 Dose: 2 unit Documented by: Iron Carb/Multivit/[place]/Folic Acid (Multivitamin W/Minerals) 1 tab PO DAILY [facility] Last Admin: 06/22/19 11:02 Dose: 1 tab Documented by: Isosorbide Dinitrate (Isordil) 10 mg PO BID [facility] Last Admin: 06/22/19 11:58 Dose: 10 mg Documented by: Latanoprost (Xalatan Ophth Drops) 1 gtt OU HS [facility] Last Admin: 01/31/20 22:23 Dose: Not Given Documented by: Lisinopril (Zestril) 10 mg PO DAILY [facility] Last Admin: 06/22/19 11:01 Dose: 10 mg Documented by: Magnesium Hydroxide (Milk Of Magnesia) 30 ml PO HSP PRN PRN Reason: Constipation Morphine Sulfate (Morphine) 2 - 6 mg IV Q1HP PRN; Protocol PRN Reason: Per Pain Protocol Last Admin: 06/22/19 01:38 Dose: 2 mg Documented by: Mupirocin (Bactroban Oint 2%) 1 dose NARES BID [facility] Last Admin: 06/22/19 11:58 Dose: 1 dose Documented by: Naloxone HCl (Narcan) 0.4 mg IV ONCE PRN PRN Reason: Opiate Reversal Nitroglycerin (Nitrostat) 0.4 mg SL Q5M PRN PRN Reason: Chest Pain Last Admin: 06/20/19 23:15 Dose: 0.4 mg Documented by: Aripiprazole [ (Abilify] 2 Mg Tablet) 1 dose PO DAILY [facility] Last Admin: 06/22/19 11:24 Dose: Not Given Documented by: Dulaglutide [ Trulicity] 1.5 Mg/0. 5 Ml Pen 1 dose SC Sa@0900 [facility] Last Admin: 06/22/19 11:27 Dose: Not Given Documented by: Timolol Maleate (Timoptic 0.25% Ophth Drops) 1 gtt OD BID [facility] Last Admin: 06/22/19 11:26 Dose: Not Given Documented by: Vitamin D (Vitamin D3) 10,000 unit PO DAILY [facility] Last Admin: 06/22/19 11:01 Dose: 10,000 unit Documented by: Medical - PN: A/P - Time Spent With Patient Total time spent is greater than 50% in coordination of care (as documented) at patient's floor/unit and/or counseling patient: 25 - 35 minutes (1) Right pontine CVA Problem details: due to new neurologic symtoms and abnormal pupils repeated CT head. same old right pontine CVA. no bleed and no new stroke. Status: Resolved Current Visit: No (2) Chest pain due to myocardial ischemia Problem details: pt poor historian but shows old Anteroseptal [place] by EKG. Plan for troponin and Echocardiogram. Troponin reached 1.97 will trend to a peak. This appears to be gwen-infarct ischemia or small vessel problem based on mild EKG abnormalities beyond the large noted old infarct. The patient has large anteroseptal infarct by echocardiogram. We discussed that angiogram would be a ppropriate if he desires coronary revascularization. Patient declined coronary intervention. He wants medical management. He is improved today. Mentation more alert. Blood pressure stronger. Status: Acute Assessment and plan: Due to lethargy and hypotension and relatively mild troponin elevation will look for other contributing factors such as adrenal failure and hypothyroidism. Labs will be sent in the morning. Current Visit: Yes (3) S/P BKA (below knee amputation) unilateral Problem details: due to good hemostasis and compressible wound will proceed with asa and lovenox for above consulting problem. Plan discussed with Dr. Abreu this morning Status: Acute Current Visit: Yes (4) Diabetes mellitus, type 2 Problem details: Creatinine elevated making metformin more risky Status: Chronic Assessment and plan: We will hold metformin for now. Continue with sliding scale insulin and diabetic diet Current Visit: No Medical - PN: Qual - VTE Deep Vein Thrombosis/Pulmonary Embolism Present on Admission: No
[2019-06-22] MEDS: LATANOPROST OPHTH DROPS 2.5ML BOTTLE OU SCH (23:02)
[2019-06-23 06:28] LABS: Basophils # (Auto) 0.04 K/mcL (0.00-0.30); Basophils % (Auto) 0.6 % (0.0-2.0); Eosinophils # (Auto) 0.24 K/mcL (0.00-0.70); Eosinophils % (Auto) 3.4 % (0.0-7.0); Granulocytes % (Auto) 66.9 % (38.0-78.0); Hematocrit 24.8 % (40.1-51.0); Hemoglobin 7.7 g/dL (13.7-17.5); Lymphocytes % (Auto) 20.1 % (15.5-49.0); Mean Cell Volume 89.9 fL (80.0-100.0); Mean Platelet Volume 11.6 fL (7.4-10.4); Monocytes # (Auto) 0.63 K/mcL (0.10-0.90); Platelet Count 207 K/mcL (140-440); RBC 2.76 M/mcL (4.63-6.08); Red Cell Distribution Width 15.5 % (11.5-14.5)
[2019-06-23 07:10] LABS: Calcium 7.8 mg/dl (8.6-10.4); Carbon Dioxide 20 mmol/L (22-30); Glomerular Filtration Rate 56; Glucose 98 mg/dL (70-105); Thyroid Stimulating Hormone 5.38 uIU/ml (0.27-5.01)
[2019-06-23 07:26] LABS: Blood Urea Nitrogen 52 mg/dl (8-23); Chloride 109 mmol/L (96-108)
[2019-06-23] MEDS: TIMOLOL 0.25% OPHTH DROPS BOTTLE 5ML OD SCH ×2 (08:19→20:56)
[2019-06-23] MEDS: DORZOLAMIDE 2% OPHTH DROPS 10ML BOTTLE OD SCH ×3 (08:19→20:56)
[2019-06-23] MEDS: INSULIN LISPRO 1 UNIT/0.01 ML UNIT SQ SCH ×5 (08:19→20:27)
[2019-06-23] MEDS: ARIPIPRAZOLE 2 MG PO SCH (08:20)
[2019-06-23] MEDS: CARVEDILOL 12.5 MG TABLET PO SCH ×3 (08:37→17:37)
[2019-06-23] MEDS: ASCORBIC ACID 500 MG TABLET PO SCH (08:37)
[2019-06-23] MEDS: ENOXAPARIN 40 MG/0.4 ML SYRINGE SQ SCH (08:37)
[2019-06-23] MEDS: VITAMIN D3 5,000 UNIT CAPSULE PO SCH (08:37)
[2019-06-23] MEDS: ESCITALOPRAM 10 MG TABLET PO SCH (08:38)
[2019-06-23] MEDS: CALCIUM W/VIT D3 500 MG TABLET PO SCH (08:38)
[2019-06-23] MEDS: DOCUSATE SODIUM 100 MG CAPSULE PO SCH ×2 (08:38→20:19)
[2019-06-23] MEDS: LISINOPRIL 5 MG TABLET PO SCH ×2 (08:38→08:53)
[2019-06-23] MEDS: MUPIROCIN OINT 2% 22GM NARES SCH ×2 (08:38→20:28)
[2019-06-23] MEDS: MULTIVIT,THER IRON,CA,FA & MIN 1 TABLET PO SCH (08:38)
[2019-06-23] MEDS: CLOPIDOGREL 75 MG TABLET PO SCH (08:38)
[2019-06-23] MEDS: ISOSORBIDE DINITRATE 10 MG TABLET PO SCH ×2 (08:44→20:20)
--- NOTE | 2019-06-23 09:02 | Orthopedic Progress Note ---
Subjective Patient information: Note initiated : 06/23/19 at 8:59 am Service Date, if different from initiated Date: [] Patient: Magdi Berumen 68 y/o M admitted on 06/20/19 for Left Below Knee Amputation with Application. Chief Complaint: [S/P LEFT BKA] PATIENT IS DOING WELL AND DENIES ANY PAIN. HE IS RESTING COMFORTABLY W/O ANY COMPLAINTS TODAY. Principal diagnosis: below the knee amputation Objective Vital signs: Vital Signs Temp Pulse Resp BP Pulse Ox 06/23/19 07:53 71 16 98 06/23/19 07:48 98.0 F 71 16 95/57 98 06/23/19 04:17 98.6 F 77 12 95/58 96 06/22/19 22:50 97.9 F 73 12 80/54 95 06/22/19 19:10 98.2 F 77 14 81/49 96 Intake and Output 06/22/19 06/23/19 06/23/19 21:59 05:59 13:59 Intake Total 150 120 Output Total 1 2 Balance -1 148 120 Intake: Oral 150 120 Output: # of times incontinent of urine 1 2 Other: Meal Dinner Percent of Meal Consumed 25% Feeding Ability Independent Urine Color Bright Yellow Urine Odor Strong Stool Size Smear Smear Stool Color Brown Brown # of times incontinent of 1 Bowels Weight 166 lb Intake & Output: Intake & Output 06/22/19 06/23/19 06/23/19 21:59 05:59 13:59 Intake Total 150 120 Output Total 1 2 Balance -1 148 120 Weight 166 lb Intake: Oral 150 120 Output: # of times incontinent of urine 1 2 Other: Meal Dinner Percent of Meal Consumed 25% Feeding Ability Independent Urine Color Bright Yellow Urine Odor Strong Stool Size Smear Smear Stool Color Brown Brown # of times incontinent of 1 Bowels Incision: Yes healing, Yes clean and dry Incision clean and dry: Yes Dressing: Yes clean, Yes dry, Yes intact Weight bearing status: non (LLE) Neurological exam IM: Yes alert, Yes oriented X3, Yes motor sensory intact, Yes neurovascular intact Extremities exam IM: Yes calf tenderness (NEGATIVE RIGHT), Yes tenderness (MILD DIFFUSE LLE), Yes Nato's sign (NEGATIVE RIGHT), Yes neurovascular intact - Labs CBC & BMP: 06/23/19 04:41 06/23/19 04:41 Labs: 06/23/19 06/21/19 06/20/19 04:41 02:21 22:44 Hgb 7.7 L 9.2 L Hct 24.8 L 27.4 L 28.7 L Assessment and Plan (1) S/P BKA (below knee amputation) unilateral PATIENT IS STABLE FROM ORTHO STANDPOINT. CONTINUE ABX AND MANAGEMENT PER HOSPITALIST. LIKELY DISCHARGE TO [facility]. Status: Acute Comment: due to good hemostasis and compressible wound will proceed with asa and lovenox for above consulting problem. Plan discussed with Dr. Abreu this morning
[2019-06-23] MEDS ORDERED: HYDROCORTISONE SOD SUCC 100 MG VIAL IV SCH (12:00)
[2019-06-23] MEDS: HYDROCORTISONE SOD SUCC 100 MG VIAL IV SCH ×2 (12:10→17:36)
[2019-06-23] MEDS ORDERED: LACTULOSE 20 GM/30 ML ORAL.SOL PO PRN (12:36)
--- NOTE | 2019-06-23 12:43 | Internal Med Progress Note ---
Medical - PN: Subj Patient information: Note initiated : 06/23/19 at 12:41 pm Service Date, if different from initiated Date: [] Patient: Magdi Berumen 68 y/o M admitted on 06/20/19 for Left Below Knee Amputation with Application. Chief Complaint: [] Interval history: Patient denies chest pain. He still states he feels fine but tired he is not sure when he last had a bowel movement but denies abdominal pain. - Constitutional Vitals: Vital Signs Temp Pulse Resp BP Pulse Ox 98.0 F 71 16 95/57 98 06/23/19 07:48 06/23/19 07:53 06/23/19 07:53 06/23/19 07:48 06/23/19 07:53 Period Temp Pulse Resp BP Sys/Marrufo Pulse Ox Last 24 Hr 97.9 F-98.6 F 71-77 12-16 80-95/49-58 95-98 Intake and Output 06/22/19 06/23/19 06/23/19 21:59 05:59 13:59 Intake Total 150 120 Output Total 1 2 Balance -1 148 120 Weight 166 lb Intake & Output: Intake & Output 06/22/19 06/23/19 06/23/19 21:59 05:59 13:59 Intake Total 150 120 Output Total 1 2 Balance -1 148 120 Weight 166 lb Intake: Oral 150 120 Output: # of times incontinent of urine 1 2 Other: Meal Dinner Percent of Meal Consumed 25% Feeding Ability Independent Urine Color Bright Yellow Urine Odor Strong Stool Size Smear Smear Stool Color Brown Brown # of times incontinent of 1 Bowels - Additional findings Additional findings: General well-developed well-nourished overweight man no acute cardiopulmonary stress he is sleeping but arouses and speaks clearly. CV regular rate and rhythm lungs clear to auscultation bilaterally abdomen positive bowel sounds soft nontender calves left BKA noted right calf no swelling. Skin warm and dry Mentation alert and oriented x3 Medical - PN: Obj Da - Labs CBC & Chem 7: 06/23/19 04:41 06/23/19 04:41 Labs: Abnormal Lab Results 06/23/19 06/23/19 06/23/19 04:41 04:41 04:41 RBC 2.76 L Hgb 7.7 L Hct 24.8 L RDW 15.5 H MPV 11.6 H Gran % Lymph % (Auto) [place] % (Auto) Gran # Lymph # (Auto) 1.40 L [place] # (Auto) Sodium Potassium Chloride 109 H Carbon Dioxide 20 L BUN 52 H Creatinine 1.3 H Glucose Calcium 7.8 L Troponin T 1.54 H* Total Protein Albumin TSH 5.38 H 06/21/19 06/21/19 06/21/19 17:38 08:43 08:43 RBC Hgb Hct RDW MPV Gran % Lymph % (Auto) [place] % (Auto) Gran # Lymph # (Auto) [place] # (Auto) Sodium Potassium Chloride Carbon Dioxide 20 L BUN 42 H Creatinine 1.3 H Glucose 229 H Calcium 8.2 L Troponin T 1.91 H* 0.75 H* Total Protein 5.5 L Albumin 3.0 L TSH 06/21/19 06/21/19 06/20/19 02:21 02:21 22:44 RBC Hgb Hct 27.4 L RDW MPV Gran % Lymph % (Auto) [place] % (Auto) Gran # Lymph # (Auto) [place] # (Auto) Sodium Potassium Chloride Carbon Dioxide BUN Creatinine Glucose Calcium Troponin T 0.05 H* 0.05 H* Total Protein Albumin TSH 06/20/19 06/20/19 22:44 22:44 RBC 3.30 L Hgb 9.2 L Hct 28.7 L RDW 15.0 H MPV 11.0 H Gran % 96.3 H Lymph % (Auto) 2.8 L [place] % (Auto) 0.8 L Gran # 10.09 H Lymph # (Auto) 0.29 L [place] # (Auto) 0.08 L Sodium 132 L Potassium 5.6 H Chloride Carbon Dioxide 20 L BUN 44 H Creatinine 1.4 H Glucose 315 H Calcium 8.2 L Troponin T Total Protein Albumin TSH Meds: Medications Acetaminophen (Tylenol) 500 mg PO DAILYP PRN; Protocol PRN Reason: Pain Hydrocodone Bitart/Acetaminophen ([facility] 10/325mg) 1 - 2 tab PO Q6HP PRN; Protocol PRN Reason: Per Pain Protocol Last Admin: 06/22/19 21:12 Dose: 2 tab Documented by: Ascorbic Acid (Vitamin C) 500 mg PO DAILY [facility] Last Admin: 06/23/19 08:37 Dose: 500 mg Documented by: Atorvastatin Calcium (Lipitor) 10 mg PO HS [facility] Last Admin: 06/22/19 20:56 Dose: 10 mg Documented by: Bisacodyl (Dulcolax) 10 mg ME DAILYP PRN PRN Reason: Constipation Calcium/Vitamin D (Calcium W/Vit D3) 500 mg PO DAILY [facility] Last Admin: 06/23/19 08:38 Dose: 500 mg Documented by: [facility] ([facility] Last Admin: 06/23/19 08:53 Dose: Not Given Documented by: Clopidogrel Bisulfate (Plavix) 75 mg PO DAILY [facility] Last Admin: 06/23/19 08:38 Dose: 75 mg Documented by: Dextrose (Dextrose 50%) 25 ml IV UD PRN PRN Reason: Hypoglycemia Diagnostic Test (Pha) (Accu-Chek) 1 each FS [facility] Last Admin: 06/23/19 12:02 Dose: 1 each Documented by: Docusate Sodium (Colace) 100 mg PO BID [facility] Last Admin: 06/23/19 08:38 Dose: 100 mg Documented by: Dorzolamide HCl (Trusopt 2% Ophth Drops) 1 gtt OD TID [facility] Last Admin: 06/23/19 08:19 Dose: Not Given Documented by: Enoxaparin Sodium (Lovenox) 40 mg SQ DAILY [facility] Last Admin: 06/23/19 08:37 Dose: 40 mg Documented by: Escitalopram Oxalate (Lexapro) 10 mg PO DAILY [facility] Last Admin: 06/23/19 08:38 Dose: 10 mg Documented by: Hydrocortisone (Cortef) 20 mg PO [facility] Hydrocortisone Sodium Succinate (Solu-Cortef) 50 mg IV Q6 [facility] Stop: 06/24/19 00:01 Last Admin: 06/23/19 12:10 Dose: 50 mg Documented by: Insulin Human Lispro (Humalog) 0 unit SQ [facility]; Protocol Last Admin: 06/23/19 12:03 Dose: Not Given Documented by: Iron Carb/Multivit/[employer] [place] [place]/Folic Acid (Multivitamin W/Minerals) 1 tab PO DAILY [facility] Last Admin: 06/23/19 08:38 Dose: 1 tab Documented by: Isosorbide Dinitrate (Isordil) 10 mg PO BID [facility] Last Admin: 06/23/19 08:44 Dose: 10 mg Documented by: Lactulose (Cephulac) 20 gm PO TIDP PRN PRN Reason: Constipation Latanoprost (Xalatan Ophth Drops) 1 gtt OU HS [facility] Last Admin: 06/22/19 23:02 Dose: Not Given Documented by: Lisinopril (Zestril) 10 mg PO DAILY [facility] Last Admin: 06/23/19 08:53 Dose: Not Given Documented by: Magnesium Hydroxide (Milk Of Magnesia) 30 ml PO [facility] PRN PRN Reason: Constipation Morphine Sulfate (Morphine) 2 - 6 mg IV Q1HP PRN; Protocol PRN Reason: Per Pain Protocol Last Admin: 06/22/19 01:38 Dose: 2 mg Documented by: Mupirocin (Bactroban Oint 2%) 1 dose NARES BID [facility] Last Admin: 06/23/19 08:38 Dose: 1 dose Documented by: Naloxone HCl (Narcan) 0.4 mg IV ONCE PRN PRN Reason: Opiate Reversal Nitroglycerin (Nitrostat) 0.4 mg SL Q5M PRN PRN Reason: Chest Pain Last Admin: 06/20/19 23:15 Dose: 0.4 mg Documented by: Aripiprazole [ (Abilify] 2 Mg Tablet) 1 dose PO DAILY [facility] Last Admin: 06/23/19 08:20 Dose: Not Given Documented by: Dulaglutide [ Trulicity] 1.5 Mg/0. 5 Ml Pen 1 dose SC Sa@0900 [facility] Last Admin: 06/22/19 11:27 Dose: Not Given Documented by: Timolol Maleate (Timoptic 0.25% Ophth Drops) 1 gtt OD BID [facility] Last Admin: 06/23/19 08:19 Dose: Not Given Documented by: Vitamin D (Vitamin D3) 10,000 unit PO DAILY [facility] Last Admin: 06/23/19 08:37 Dose: 10,000 unit Documented by: - Impressions Cortisol low at 7.87. Given his recent MS and fatigue I am going to start him on some stress dose steroids. Decrease over the next week. Anticipate that [facility] Medical - PN: A/P - Time Spent With Patient Total time spent is greater than 50% in coordination of care (as documented) at patient's floor/unit and/or counseling patient: 25 - 35 minutes (1) Right pontine CVA Problem details: due to new neurologic symtoms and abnormal pupils repeated CT head. same old right pontine CVA. no bleed and no new stroke. Status: Resolved Current Visit: No (2) Chest pain due to myocardial ischemia Problem details: pt poor historian but shows old Anteroseptal MS by EKG. Plan for troponin and Echocardiogram. Troponin reached 1.97 will trend to a peak. This appears to be gwen-infarct ischemia or small vessel problem based on mild EKG abnormalities beyond the large noted old infarct. The patient has large anteroseptal infarct by echocardiogram. We discussed that angiogram would be appropriate if he desires coronary revascularization. Patient declined coronary intervention. He wants medical management. He is improved today. Mentation more alert. Blood pressure stronger. Status: Acute Assessment and plan: Due to lethargy and hypotension and relatively mild troponin elevation will look for other contributing factors such as adrenal failure and hypothyroidism. Labs will be sent in the morning. Current Visit: Yes (3) S/P BKA (below knee amputation) unilateral Problem details: due to good hemostasis and compressible wound will proceed with asa and lovenox for above consulting problem. Plan discussed with Dr. Abreu this morning Status: Acute Current Visit: Yes (4) Diabetes mellitus, type 2 Problem details: Creatinine elevated making metformin more risky Status: Chronic Assessment and plan: We will hold metformin for now. Continue with sliding scale insulin and diabetic diet Current Visit: No (5) Adrenal insufficiency Problem details: Patient with acute non-ST segment elevation MS and hypotension. Adrenal cortisol level is too low. Will give stress dose steroids and wean off over the next week. Resume therapy and anticipate [facility] Status: Acute Current Visit: Yes Medical - PN: Qual - VTE Deep Vein Thrombosis/Pulmonary Embolism Present on Admission: No
[2019-06-23] MEDS: HYDROcodone/APAP 10/325MG TABLET PO PRN (18:06)
[2019-06-23] MEDS: ATORVASTATIN 20 MG TABLET PO SCH (20:19)
[2019-06-23] MEDS: LATANOPROST OPHTH DROPS 2.5ML BOTTLE OU SCH (20:56)
[2019-06-24] MEDS: HYDROCORTISONE SOD SUCC 100 MG VIAL IV SCH (00:59)
[2019-06-24] MEDS: HYDROcodone/APAP 10/325MG TABLET PO PRN ×2 (01:02→09:18)
--- NOTE | 2019-06-24 05:47 | Orthopedic Progress Note ---
Subjective Patient information: Note initiated : 06/24/19 at 5:43 am Service Date, if different from initiated Date: [] Patient: Magdi Berumen 68 y/o M admitted on 06/20/19 for Left Below Knee Amputation with Application. Chief Complaint: [] Principal diagnosis: below the knee amputation Interval history: Patient is feeling weak today and has some pain in his leg but otherwise is feeling okay. He denies any CP, LESLIE, nausea, vomiting, or any other acute symptoms. Objective Vital signs: Vital Signs Temp Pulse Resp BP Pulse Ox 06/24/19 03:00 97.6 F 84 16 109/70 97 06/23/19 23:51 97.6 F 88 20 110/64 96 06/23/19 19:51 98.1 F 96 H 18 117/70 98 06/23/19 16:00 99.0 F 84 16 103/62 97 06/23/19 12:00 96.7 F L 80 16 105/62 90 06/23/19 07:53 71 16 98 06/23/19 07:48 98.0 F 71 16 95/57 98 Intake and Output 06/23/19 06/23/19 06/24/19 13:59 21:59 05:59 Intake Total 120 240 Output Total 2 Balance 120 238 Intake: Oral 120 240 Output: # of times incontinent of urine 2 Other: Urine Color Bright Yellow Urine Odor Strong Stool Size Smear Stool Color Brown Weight 174 lb Patient Weight 06/24/19 05:59 Weight 174 lb Intake & Output: Intake & Output 06/23/19 06/23/19 06/24/19 13:59 21:59 05:59 Intake Total 120 240 Output Total 2 Balance 120 238 Weight 174 lb Intake: Oral 120 240 Output: # of times incontinent of urine 2 Other: Urine Color Bright Yellow Urine Odor Strong Stool Size Smear Stool Color Brown Incision: No draining Incision clean and dry: Yes Dressing: Yes clean, Yes dry, Yes intact Weight bearing status: non Extremities exam IM: No calf tenderness - Labs CBC & BMP: 06/23/19 04:41 06/23/19 04:41 Labs: 06/23/19 06/21/19 06/20/19 04:41 02:21 22:44 Hgb 7.7 L 9.2 L Hct 24.8 L 27.4 L 28.7 L Assessment and Plan (1) S/P BKA (below knee amputation) unilateral Patient doing well from below knee standpoint. May be discharged to SNF by hospitalist, follow up with orthopaedics in 2-4 days for wound vac removal. PT for transfers Needs to wear knee brace to extend beyond stump when transferring for protection of stump Follow up with PCP per hospitalists Status: Acute Comment: due to good hemostasis and compressible wound will proceed with asa and lovenox for above consulting problem. Plan discussed with Dr. Abreu this morning
[2019-06-24] MEDS: INSULIN LISPRO 1 UNIT/0.01 ML UNIT SQ SCH ×2 (07:48→12:15)
[2019-06-24] MEDS ORDERED: HYDROCORTISONE 10 MG TABLET PO SCH (08:00)
[2019-06-24] MEDS: CARVEDILOL 12.5 MG TABLET PO SCH (08:22)
[2019-06-24] MEDS: ARIPIPRAZOLE 2 MG PO SCH (08:49)
[2019-06-24] MEDS: MULTIVIT,THER IRON,CA,FA & MIN 1 TABLET PO SCH (09:00)
[2019-06-24] MEDS: CLOPIDOGREL 75 MG TABLET PO SCH (09:01)
[2019-06-24] MEDS: LISINOPRIL 5 MG TABLET PO SCH (09:02)
[2019-06-24] MEDS: CALCIUM W/VIT D3 500 MG TABLET PO SCH (09:02)
[2019-06-24] MEDS: VITAMIN D3 5,000 UNIT CAPSULE PO SCH (09:03)
[2019-06-24] MEDS: ASCORBIC ACID 500 MG TABLET PO SCH (09:04)
[2019-06-24] MEDS: DOCUSATE SODIUM 100 MG CAPSULE PO SCH (09:04)
[2019-06-24] MEDS: ENOXAPARIN 40 MG/0.4 ML SYRINGE SQ SCH (09:05)
[2019-06-24] MEDS: ESCITALOPRAM 10 MG TABLET PO SCH (09:05)
[2019-06-24] MEDS: MUPIROCIN OINT 2% 22GM NARES SCH (09:06)
[2019-06-24] MEDS: DORZOLAMIDE 2% OPHTH DROPS 10ML BOTTLE OD SCH (09:06)
[2019-06-24] MEDS: TIMOLOL 0.25% OPHTH DROPS BOTTLE 5ML OD SCH (09:06)
[2019-06-24] MEDS: ISOSORBIDE DINITRATE 10 MG TABLET PO SCH (09:17)
--- NOTE | 2019-06-24 11:04 | Discharge Summary ---
Medical - DS: Prov Patient information: Note initiated : 06/24/19 at 11:01 am Service Date, if different from initiated Date: [] Patient: Magdi Berumen 68 y/o M admitted on 06/20/19 for Left Below Knee Amputation with Application. Chief Complaint: [left leg gangrene, ischemia] Date of admission: 06/20/19 10:57 Discharge date: 06/24/19 Primary care physician: Casey Young Admitting clinician: Barrett Abreu Attending physician on admission: Barrett Abreu Consults: 06/20/19 22:18 Consult to Physician [CONS] Routine Comment: Consulting Provider: Abelardo Grullon Reason For Exam: Physician to Consult 06/23/19 17:57 Consult to Physician [CONS] Routine Comment: Consulting Provider: Peña Padron Reason For Exam: Physician to Consult Attending physician on discharge: Barrett Abreu Discharging clinician: Abelardo Grullon Medical - DS: Meds - Discharge Medications Prescriptions: Carvedilol [Coreg] 18.75 mg PO BIDCC #45 tab Hydrocortisone [Cortef] 20 mg PO QAMCC 6 Days #9 tab Active and Home Medications: Home Medications Accu-Chek 1 each FS ACHS #30 strip 04/13/15 [Rx Confirmed 06/20/19 Last Taken 06/20/19] Docusate Sodium [Colace] 100 mg PO BID #60 capsule 04/13/15 [Rx Confirmed 06/20/19 Last Taken 06/19/19] HYDROcodone/APAP 5/325MG [[place] 5-325Mg] 1 tab PO Q4HP PRN #14 tab 05/30/18 [Rx Confirmed 06/20/19 Last Taken 06/19/19] Acetaminophen [Pain Relief] 500 mg PO PRN PRN 01/31/19 [History Confirmed 06/20/19 Last Taken 1 Day Ago ~06/19/19 500 mg] Ascorbate Calcium [Vitamin C] 500 mg PO DAILY 01/31/19 [History Confirmed 06/20/19 Last Taken 06/19/19] Atorvastatin [Lipitor] 10 mg PO HS 01/31/19 [History Confirmed 06/20/19 Last Taken 06/19/19] Calcium Carbonate/Vitamin D3 [Calcium 500-Vit D3 200 Tablet] 1 each PO DAILY 01/31/19 [History Confirmed 06/20/19 Last Taken 06/19/19] Clopidogrel Bisulfate [Plavix] 75 mg PO DAILY 01/31/19 [History Confirmed 06/20/19 Last Taken 06/14/19] Dorzolamide 2% Ophth Drops [Trusopt 2% Ophth Drops] 1 gtt OD TID 01/31/19 [History Confirmed 06/20/19 Last Taken 06/19/19] Ergocalciferol (Vitamin D2) [Vitamin D2] 10,000 unit PO DAILY 01/31/19 [History Confirmed 06/20/19 Last Taken Unknown] Escitalopram [Lexapro] 10 mg PO DAILY 01/31/19 [History Confirmed 06/20/19 Last Taken 06/20/19] Isosorbide Dinitrate [Isordil] 10 mg PO BID 01/31/19 [History Confirmed 06/20/19 Last Taken 06/19/19] Latanoprost/Pf [Latanoprost 0.005% Eye Drop] 1 gtt OU HS 01/31/19 [History Confirmed 06/20/19 Last Taken 06/20/19] Lisinopril [Zestril] 10 mg PO DAILY 01/31/19 [History Confirmed 06/20/19 Last Taken Unknown] Multivit-Min/Iron/Folic Acid/K [Adults Multivitamin Tablet] 1 each PO DAILY 05/09 [History Confirmed 06/20/19 Last Taken 06/19/19] Nitroglycerin [Nitrostat] 0.4 mg SL Q5M PRN 01/31/19 [History Confirmed 06/20/19 Last Taken Unknown] Timolol 0.25% Ophth Drops [Timoptic 0.25% Ophth Drops] 1 gtt OD BID 01/31/19 [History Confirmed 06/20/19 Last Taken 06/20/19] metFORMIN HCL [Metformin HCl ER] 750 mg PO DAILY 01/31/19 [History Confirmed 06/20/19 Last Taken 06/19/19] Mupirocin Oint 2% [Bactroban Oint 2%] 1 dose TOPICAL BID #1 tube 05/03/19 [Rx Confirmed 06/20/19 Last Taken 06/19/19] Aripiprazole [Abilify] 2 mg PO DAILY 06/04/19 [History Confirmed 06/20/19 Last Taken 06/20/19] Bisacodyl [Dulcolax] 10 mg MO DAILYP PRN 06/04/19 [History Confirmed 06/20/19 Last Taken 06/19/19] Dulaglutide [Trulicity] 1.5 mg SQ WEEKLY 06/04/19 [History Confirmed 06/20/19 Last Taken 06/15/19] Furosemide [Lasix] 40 mg PO DAILY 06/04/19 [History Confirmed 06/20/19 Last Taken 06/19/19] Glucagon,Human Recombinant [Glucagon Emergency Kit] 1 mg IJ PRN PRN 06/04/19 [History Confirmed 06/20/19 Last Taken Unknown] Magnesium Hydroxide [Milk of Magnesia] 2,400 mg PO PRN PRN 06/04/19 [History Confirmed 06/20/19 Last Taken 06/19/19] Potassium Chloride [Klor-Con] 20 meq PO PRN PRN 06/04/19 [History Confirmed 06/20/19 Last Taken Unknown] morphine SULFATE [Morphine Sulfate] 10 mg PO PRN PRN 06/04/19 [History Confirmed 06/20/19 Last Taken 06/17/19] traMADol HCL [Ultram] 100 mg PO PRN PRN 06/04/19 [History Confirmed 06/20/19 Last Taken 06/19/19] Accu-Chek 1 each FS ACHS strip 06/24/19 [Rx Last Taken Unknown] Carvedilol [Coreg] 18.75 mg PO BIDCC #45 tab 06/24/19 [Rx Last Taken Unknown] Hydrocortisone [Cortef] 20 mg PO QAMCC 6 Days #9 tab 06/24/19 [Rx Last Taken Unknown] Lactulose [Cephulac] 20 gm PO TIDP PRN oral.penny 06/24/19 [Rx Last Taken Unknown] Medical - DS: Hosp Hospital Course: 68-year-old male with diabetes and coronary artery disease admitted for ischemic left foot with gangrene for elective amputation below the knee. Dr. Abreu admitted the patient and amputation was performed. Patient at increased risk due to coronary artery disease and had baseline desire for limited interventions. The amputation was necessary due to patient's ischemia and gangrene. Postoperatively the patient had chest pain. EKG showed large anteroseptal infarct but this was also present in 2017. Patient had an echocardiogram in 2014 showing normal EF and no wall motion abnormalities. Patient retired in 2011 in 2014 he had been normal echo. In 2018 he was seen in the ER with cardiac symptoms and found to have already EKG findings of a large anteroseptal infarct. Patient declined intervention or further work-up at that time and chose to go back to [facility] where he knew that he might but wanted comfort measures. Since then he has had angina taking isosorbide dinitrate daily as well as a PRN nitroglycerin sublingual typically up to 2 is successful. The patient postoperatively had more chest pain and EKG showed nonspecific ST-T wave changes and with the positive enzymes evidence of non-ST segment elevation PA. I discussed with him options of transfer to outside hospital for angiogram and cardiology consultation however he contemplated this for 2 days and made a firm decision that he did not desire that. His sister was also contacted and involved in patient remained firm that he does not want cardiac intervention. Likely his chest pain has resolved and has not recurred for the last 3 days. Additionally he had hypotension and somnolence with his MRI and cortisol level was 7 suggesting that he is adrenally insufficient. He has received stress dose steroids which will be tapered off at the halfway. Patient can return to the halfway at this time. He will resume his usual pain medication regimen. Carvedilol was increased from 12.5 mg twice a day to 18.75 mg twice a day Discharge diagnosis: Left below the knee amputation Secondary discharge diagnosis: Non-ST segment elevation PA Large anteroseptal PA old Chronic systolic congestive heart failure due to ischemic heart disease and past infarct NIDDM Adrenal insufficiency Reason for admission: Left leg gangrene and ischemia - Time Spent with Patient Total time spent providing and/or coordinating discharge services: Greater than 30 minutes Medical - DS: Exam - Constitutional Vitals: Vital Signs Temp Pulse Resp BP Pulse Ox 06/24/19 08:00 97.6 F 82 18 110/67 100 06/24/19 03:00 97.6 F 84 16 109/70 97 06/23/19 23:51 97.6 F 88 20 110/64 96 06/23/19 19:51 98.1 F 96 H 18 117/70 98 06/23/19 16:00 99.0 F 84 16 103/62 97 06/23/19 12:00 96.7 F L 80 16 105/62 90 Intake and Output 06/23/19 06/24/1906/24/20 21:59 05:59 13:59 Intake Total 240 Output Total 2 Balance 238 Intake: Oral 240 Output: # of times incontinent of urine 2 Other: Weight 174 lb - Other Additional findings: General well-developed well-nourished male in no acute cardiopulmonary distress CV regular rate and rhythm Lungs clear to auscultation bilaterally Abdomen positive bowel sounds soft nontender Left BKA noted dressing in place Right leg no edema Mentation alert and oriented x3. Patient is not lethargic this morning Medical - DS: Data Procedures and tests throughout hospitalization: Left below the knee amputation 06/20/2019 - Additional Comments EKG shows old anteroseptal PA. There is nonspecific diffuse ST-T wave changes next line echocardiogram shows large anteroseptal PA and EF of 29% Medical - DS: A/P - Patient/Caregiver Discharge Instructions Activity: as per physical therapy Diet: Low Sodium (2gm), Cardiac, Consistent Carbohydrate Prescriptions: Carvedilol [Coreg] 18.75 mg PO BIDCC #45 tab Hydrocortisone [Cortef] 20 mg PO QAMCC 6 Days #9 tab - Problem Maintenance (1) Right pontine CVA Status: Chronic Comment: due to new neurologic symtoms and abnormal pupils repeated CT head. same old right pontine CVA. no bleed and no new stroke. (2) Chest pain due to myocardial ischemia Status: Acute Comment: pt poor historian but shows old Anteroseptal PA by EKG. Plan for troponin and Echocardiogram. Troponin reached 1.97 will trend to a peak. This appears to be gwen-infarct ischemia or small vessel problem based on mild EKG abnormalities beyond the large noted old infarct. The patient has large anteroseptal infarct by echocardiogram. We discussed that angiogram would be appropriate if he desires coronary revascularization. Patient declined coronary intervention. He wants medical management. He is improved today. Mentation more alert. Blood pressure stronger. Qualifiers: Ischemic chest pain type: unstable angina pectoris Qualified Code(s): I20.0 - Unstable angina (3) S/P BKA (below knee amputation) unilateral Status: Acute Comment: due to good hemostasis and compressible wound will proceed with asa and lovenox for above consulting problem. Plan discussed with Dr. Abreu this morning (4) Diabetes mellitus, type 2 Status: Chronic Comment: Creatinine elevated making metformin more risky Qualifiers: Diabetes mellitus press tender long goods insulin use: without jail use Diabetes mellitus complication status: with other specified complication Qualified Code(s): E11.69 - Type 2 diabetes mellitus with other specified complication (5) Adrenal insufficiency Status: Acute Comment: Patient with acute non-ST segment elevation PA and hypotension. Adrenal cortisol level is too low. Will give stress dose steroids and wean off over the next week. Resume therapy and anticipate transfer back to [facility] tomorrow - Follow up Plan Follow up with: Barrett Abreu MD [Physician] - 06/26/19 3:20 pm Disposition: Xfer SNF Prognosis: Fair Rehab Potential: Fair I certify that the patient requires SNF services: Yes Overall status at discharge: patient is not back to baseline Medical - DS: Qual - VTE Deep Vein Thrombosis/Pulmonary Embolism Present on Admission: No
--- NOTE | 2019-06-24 12:44 | General Surgery Consult Note ---
History of Present Illness Patient information: Note initiated : 06/24/19 at 12:40 pm Service Date, if different from initiated Date: [] Patient: Magdi Berumen 68 y/o M admitted on 06/20/19 for Left Below Knee Amputation with Application. Chief Complaint: [] Requesting physician: Abelardo Grullon History of present illness: I saw this patient briefly. I know this patient from prior encounter at wound center and at [facility] in [place], [place]. He is recovering well form LEFT , BKA. Reviewed EHR notes. Discharge plans noted. Patient to be seen by Dr. Abreu for post surgical wound check and f/u. NO f/u at wound care center needed at this time. Will see again PRN basis. Thanks. Medications and Allergies Home Medications Medication Instructions Recorded Confirmed Type Accu-Chek 1 each FS ACHS #30 strip 04/13/15 06/20/19 Rx Docusate Sodium [Colace] 100 mg PO BID #60 capsule 04/13/15 06/20/19 Rx HYDROcodone/APAP 5/325MG [[place] 1 tab PO Q4HP PRN #14 tab 05/30/18 06/20/19 Rx 5-325Mg] Acetaminophen [Pain Relief] 500 mg PO PRN PRN 01/31/19 06/20/19 History Ascorbate Calcium [Vitamin C] 500 mg PO DAILY 01/31/19 06/20/19 History Atorvastatin [Lipitor] 10 mg PO HS 01/31/19 06/20/19 History Calcium Carbonate/Vitamin D3 1 each PO DAILY 01/31/19 06/20/19 History [Calcium 500-Vit D3 200 Tablet] Clopidogrel Bisulfate [Plavix] 75 mg PO DAILY 01/31/19 06/20/19 History Dorzolamide 2% Ophth Drops 1 gtt OD TID 01/31/19 06/20/19 History [Trusopt 2% Ophth Drops] Ergocalciferol (Vitamin D2) 10,000 unit PO DAILY 01/31/19 06/20/19 History [Vitamin D2] Escitalopram [Lexapro] 10 mg PO DAILY 01/31/19 06/20/19 History Isosorbide Dinitrate [Isordil] 10 mg PO BID 01/31/19 06/20/19 History Latanoprost/Pf [Latanoprost 0.005% 1 gtt OU HS 01/31/19 06/20/19 History Eye Drop] Lisinopril [Zestril] 10 mg PO DAILY 01/31/19 06/20/19 History Multivit-Min/Iron/Folic Acid/K 1 each PO DAILY 01/31/19 06/20/19 History [Adults Multivitamin Tablet] Nitroglycerin [Nitrostat] 0.4 mg SL Q5M PRN 01/31/19 06/20/19 History Timolol 0.25% Ophth Drops 1 gtt OD BID 01/31/19 06/20/19 History [Timoptic 0.25% Ophth Drops] metFORMIN HCL [Metformin HCl ER] 750 mg PO DAILY 01/31/19 06/20/19 History Mupirocin Oint 2% [Bactroban Oint 1 dose TOPICAL BID #1 tube 05/03/19 06/20/19 Rx 2%] Aripiprazole [Abilify] 2 mg PO DAILY 06/04/19 06/20/19 History Bisacodyl [Dulcolax] 10 mg [place] DAILYP PRN 06/04/19 06/20/19 History Dulaglutide [Trulicity] 1.5 mg SQ WEEKLY 06/04/19 06/20/19 History Furosemide [Lasix] 40 mg PO DAILY 06/04/19 06/20/19 History Glucagon,Human Recombinant 1 mg IJ PRN PRN 06/04/19 06/20/19 History [Glucagon Emergency Kit] Magnesium Hydroxide [Milk of 2,400 mg PO PRN PRN 06/04/19 06/20/19 History Magnesia] Potassium Chloride [Klor-Con] 20 meq PO PRN PRN 06/04/19 06/20/19 History morphine SULFATE [Morphine Sulfate] 10 mg PO PRN PRN 06/04/19 06/20/19 History traMADol HCL [Ultram] 100 mg PO PRN PRN 06/04/19 06/20/19 History Accu-Chek 1 each FS ACHS strip 06/24/19 Rx Carvedilol [Coreg] 18.75 mg PO BIDCC #45 tab 06/24/19 Rx Hydrocortisone [Cortef] 20 mg PO QAMCC 6 Days #9 tab 06/24/19 Rx Lactulose [Cephulac] 20 gm PO TIDP PRN oral.penny 06/24/19 Rx Allergies Allergy/AdvReac Type Severity Reaction Status Date / Time Cephalosporins AdvReac Mild Diarrhea Verified 06/21/19 08:22 Exam Temp Pulse Resp BP Pulse Ox 97.6 F 82 18 110/67 100 06/24/19 08:00 06/24/19 08:00 06/24/19 08:00 06/24/19 08:00 06/24/19 08:00 Results - Labs 06/23/19 04:41 06/23/19 04:41 All other labs normal. Assessment and Plan (1) Amputation below knee Status: Acute Priority: Medium Comment: SEE NOTE ABOVE. Patient will see Dr. Brady ARGUETA for post surgical f/u. Thanks.
--- NOTE | 2019-06-24 13:01 | Surgical Pathology Report ---
HISTOLOGY SPECIMEN MICROSCOPIC DIAGNOSIS LEFT [id number], AMPUTATION: -- ULCERATED SKIN WITH GANGRENOUS NECROSIS, SOFT TISSUE MIXED ACUTE AND CHRONIC INFLAMMATION, SKELETAL MUSCLE ATROPHY AND MILD TO MODERATE ATHEROSCLEROSIS. -- CHRONIC OSTEOMYELITIS. -- NO ACUTE OSTEOMYELITIS IDENTIFIED. -- MARGINS VIABLE. (EBD:adj) PROCEDURAL IMPRESSION Chronic ulceration foot/heel. GROSS DESCRIPTION Received fresh labeled left leg, is a left leg [id number] amputation measuring 23 cm heel to toe and 35 cm heel to proximal resection margin. The proximal margin consists cut bone margin and soft tissue; the skin margin is 4 to 12 cm distal to the proximal margin. The foot has an absent fifth digit and four ulcerated regions, three on the lateral surface and one on the medial surface. The ulcerations are schulte-brown and have maximum dimensions ranging from 0.9 to 1.7 cm. There is skin sloughing on the fourth toe. Aircraft Quality Control Inspector sections are submitted as follows: A1 - scraped marrow at resection margin; A2 - skin and soft tissue resection margin and cross sections of vessel; A3 - cross sections of ulcerated regions, following decalcification. (RLF:sln) Electronically Signed by: Natasha Fong M.D.
== END 2019-06-24 13:30 | DRG 239 ==
LOC: MEDSUR 10:57
PROVIDERS: ADMIT Orthopaedic Surgery Foot and Ankle Surgery; ATTEND Orthopaedic Surgery Foot and Ankle Surgery

== ENCOUNTER 2019-08-14 10:42 | Inpatient (IN) ==
--- NOTE | 2019-08-14 11:08 | Emergency Department Note ---
General Adult HPI - General Chief complaint: Blood Pressure Problem Stated complaint: Low blood pressure and nausea Time Seen by Provider: 08/14/19 10:45 Source: patient Mode of arrival: wheelchair - History of Present Illness HPI Narrative: 69-year-old male patient referred to the emergency department from Dr. Obregon's office with chief complaint of hypotension and nausea. Upon arrival patient's blood pressure was 93/60. He is somewhat demented but able to answer the majority of my questions. He came to us with a Nitroglycerin transdermal patch in place. This was subsequently removed upon arrival. Patient currently lives at a SNF and mentions that they put this patch in place every day. He denies any headache, retrosternal chest pain, palpitations, or abdominal pain. He denies recent illness. He denies nausea or vomiting currently. He admits to ongoing but unchanged focal weakness to the left side secondary to CVA in 2013. 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 A review of his active problems shows the following: Hyperkalemia, myocardial ischemia, below the knee amputee, adrenal insufficiency, DNR, peripheral neuropathy, type 2 diabetes, right pontine CVA, acute ischemic left anterior cerebral artery, history of SD, CHF, diabetic foot ulcers. - Related Data Home Medications Medication Instructions Recorded Confirmed Acetaminophen [Pain Relief] 500 mg PO PRN PRN 01/31/19 06/20/19 Ascorbate Calcium [Vitamin C] 500 mg PO DAILY 01/31/19 06/20/19 Atorvastatin [Lipitor] 10 mg PO HS 01/31/19 06/20/19 Calcium Carbonate/Vitamin D3 1 each PO DAILY 01/31/19 06/20/19 [Calcium 500-Vit D3 200 Tablet] Clopidogrel Bisulfate [Plavix] 75 mg PO DAILY 01/31/19 06/20/19 Dorzolamide 2% Ophth Drops 1 gtt OD TID 01/31/19 06/20/19 [Trusopt 2% Ophth Drops] Ergocalciferol (Vitamin D2) 10,000 unit PO DAILY 01/31/19 06/20/19 [Vitamin D2] Escitalopram [Lexapro] 10 mg PO DAILY 01/31/19 06/20/19 Isosorbide Dinitrate [Isordil] 10 mg PO BID 01/31/19 06/20/19 Latanoprost/Pf [Latanoprost 0.005% 1 gtt OU HS 01/31/19 06/20/19 Eye Drop] Lisinopril [Zestril] 10 mg PO DAILY 01/31/19 06/20/19 Multivit-Min/Iron/Folic Acid/K 1 each PO DAILY 01/31/19 06/20/19 [Adults Multivitamin Tablet] Nitroglycerin [Nitrostat] 0.4 mg SL Q5M PRN 01/31/19 06/20/19 Timolol 0.25% Ophth Drops 1 gtt OD BID 01/31/19 06/20/19 [Timoptic 0.25% Ophth Drops] metFORMIN HCL [Metformin HCl ER] 750 mg PO DAILY 01/31/19 06/20/19 Aripiprazole [Abilify] 2 mg PO DAILY 06/04/19 06/20/19 Bisacodyl [Dulcolax] 10 mg [place] DAILYP PRN 06/04/19 06/20/19 Dulaglutide [Trulicity] 1.5 mg SQ WEEKLY 06/04/19 06/20/19 Furosemide [Lasix] 40 mg PO DAILY 06/04/19 06/20/19 Glucagon,Human Recombinant 1 mg IJ PRN PRN 06/04/19 06/20/19 [Glucagon Emergency Kit] Magnesium Hydroxide [Milk of 2,400 mg PO PRN PRN 06/04/19 06/20/19 Magnesia] Potassium Chloride [Klor-Con] 20 meq PO PRN PRN 06/04/19 06/20/19 morphine SULFATE [Morphine Sulfate] 10 mg PO PRN PRN 06/04/19 06/20/19 traMADol HCL [Ultram] 100 mg PO PRN PRN 06/04/19 06/20/19 Previous Rx's Medication Instructions Recorded Accu-Chek 1 each FS ACHS #30 strip 04/13/15 Docusate Sodium [Colace] 100 mg PO BID #60 capsule 04/13/15 HYDROcodone/APAP 5/325MG [[place] 1 tab PO Q4HP PRN #14 tab 05/30/18 5-325Mg] Mupirocin Oint 2% [Bactroban Oint 1 dose TOPICAL BID #1 tube 05/03/19 2%] Accu-Chek 1 each FS ACHS strip 06/24/19 Carvedilol [Coreg] 18.75 mg PO BIDCC #45 tab 06/24/19 HYDROcodone/APAP 5/325MG [[place] 1 tab PO Q4HP PRN #30 tab 06/24/19 5-325Mg] Lactulose [Cephulac] 20 gm PO TIDP PRN oral.penny 06/24/19 Allergies Allergy/AdvReac Type Severity Reaction Status Date / Time Cephalosporins AdvReac Mild Diarrhea Verified 08/14/19 10:43 Review of Systems All systems ED: reviewed and negative except as stated. Past Medical History - Past Medical History Medical history: Reports: CVA, DM Psychiatric history: Reports: no psych history Surgical history ED: Reports: non-contributory - Social History smoking status: Former smoker Alcohol use: Reports: Rarely Drug use: Reports: none Physical Exam Limitations: altered mental status (Mild dementia.) General appearance: alert, in no apparent distress, other (Well-developed, well- nourished, chronically ill-appearing 69-year-old male patient laying semirecumbent on the emergency room gurney in no acute respiratory distress.) Head: atraumatic, normocephalic Eye: Present: miosis (constriction). Absent: PERRL (Right eye blindness. Pupil is misshapen. Left pupil reacts to light.), EOMI, scleral icterus, conjunctival injection, nystagmus ENT: Present: normal oropharynx, mucous membranes moist Neck: Present: trachea midline. Absent: lymphadenopathy, thyromegaly Chest: Present: symmetric chest wall rise Respiratory: Present: decreased breath sounds. Absent: respiratory distress, rales/crackles, wheezes, stridor (Throughout the chest), prolonged expiratory phase Cardiovascular: Present: regular rate, normal rhythm. Absent: normal heart sounds (Heart tones are faint somewhat distant only auscultation.), systolic murmur, diastolic murmur Abdominal: Present: soft, hypoactive bowel sounds. Absent: distention, tenderness, guarding, rebound, rigidity, organomegaly, mass Extremities: Present: normal capillary refill, other (Scaly slightly erythematous wound to the anterior portion of the right lower extremity. No active drainage.). Absent: normal inspection (Left below the knee amputation noted.), tenderness, pedal edema Neurological: Present: alert, motor sensory deficit (Considerably decreased motion and strength to the left upper extremity.). Absent: oriented X3 (Patient is oriented to his person.) Psychiatric: Present: normal affect, normal mood Skin: Present: cool, dry, pallor Course Course Narrative: Patient was brought into the emergency department and a history and physical exam was performed. Saline lock was established and laboratory studies were drawn. Twelve-lead EKG was obtained at showing no ectopy or ST segment changes. Portable chest x-ray was ordered and reviewed. Normal saline was started at 1000 mL bolus. Repeat blood pressure showed a decrease to 70 systolic. At that time patient was placed in Trendelenburg. Reevaluation of his blood pressure shows considerable improvement to 100 systolic. Patient completed the 1000 mL normal saline. Nursing staff came to inform the patient began to abruptly complaint of left-sided chest pain. Patient does have a known history of myocardial infarction in the past. Repeat EKG was obtained. Patient was given 3 and 24 mg of aspirin to chew and swallow. Troponin was added to his blood work. Review of his laboratory studies show the following: CBC WBC 9.2, RBC 2.51, hemoglobin 9.6, hematocrit 30.6, platelet count 415. CMP sodium 130, potassium 5.2, chloride 93, CO2 20, anion gap 17, BUN 111, creatinine 5.0, glucose 130, all others normal limits. Lactic acid 1.3. Troponin was 0.24 (this is considerably decreased from previous a month ago). Urinalysis showing Cloudy yellow urine with 500 leukocyte Estrace, 182 WBC, and multiple bacteria. Portable chest x-ray showing no acute abnormality. After reviewing all the data I did discuss the case my collaborating physician. At this time patient appears to have a UTI in the setting of acute on chronic renal failure. It was recommended that I reach out to the patient's tray worker (Dr. Obregon). I spoke to Dr. Obregon who mentioned that the patient is likely volume depleted based on his elevated BUN and creatinine. He recommended the patient be admitted for several days in order to receive fluid rehydration and close monitoring. Next, I reached out to our hospitalist (Dr. Douglas) and explained this to him. At this time Dr. Tobias is very concerned that the patient had an episode of chest pain emergency department and has a current elevated troponin of 0.24. He recommended that I reach out to her superintendent mechanical in order to get their insight into admission. I then reached out to the on-call superintendent mechanical [facility] (Dr. Omer) and explained situation to him. At this time Dr. Omer mentioned that the patient does likely have some form of ischemic cardiomyopathy based on his elevated troponins and decreased ejection fraction. He mentioned that this case can be handled in one of two ways. The patient is currently DNR but we are unsure how aggressive the patient is wanting to be in his treatment. If the patient desires some form of aggressive coronary intervention (heart catheterization) than he would likely need to be transferred to a tertiary facility that would allow both cardiovascular care and dialysis. [facility] does not have dialysis. However, if the patient is only wanting comfort measures then is likely the patient could remain at our facility to receive care. Knowing this, I had the nursing staff reach out to the patient's power of assistant city attorney to discuss how aggressive they are wanting to be in the patient's care. At this time they say that the patient is a DNR but when it comes to aggressive management they truly leave it up to the patient. I went and spoke to the patient directly and asked him what his wishes may be. At this time he is expressing a desire for comfort care only and does not want to be transferred from this facility. Finally, I reached out to the hospitalist (Dr. Douglas) once again I discussed all of this with him. Dr. Douglas consented to admit the patient to the hospital to the medical service. All further treatment decisions, modalities, and ultimate patient disposition be carried out by Dr. Douglas. Vital Signs Temperature 96.4 F L 08/14/19 10:44 Pulse Rate 81 08/14/19 10:44 Respiratory Rate 16 08/14/19 10:44 Blood Pressure 93/60 08/14/19 10:44 Pulse Oximetry (%) 100 08/14/19 10:44 Temperature 96.4 F L 08/14/19 10:44 Pulse Rate 94 H 08/14/19 15:20 Respiratory Rate 15 08/14/19 15:20 Blood Pressure 115/81 08/14/19 15:17 Pulse Oximetry (%) 99 08/14/19 15:20 Medical Decision Making - Lab Data Lab results reviewed: Yes I reviewed the patient's lab results. Result diagrams: 08/14/19 11:11 08/14/19 11:11 Lab Results 08/14/19 08/14/19 08/14/19 Range/Units 11:11 11:11 11:11 WBC 9.2 (4.50-11.00) K/mcL RBC 3.51 L (4.63-6.08) M/mcL Hgb 9.6 L (13.7-17.5) g/dL Hct 30.6 L (40.1-51.0) % MCV 87.2 (80.0-100.0) fL MCH 27.4 (26.0-34.0) pg MCHC 31.4 (31.0-36.0) g/dL RDW 13.9 (11.5-14.5) % Plt Count 415 (140-440) K/mcL MPV 10.5 H (7.4-10.4) fL Gran % 68.3 (38.0-78.0) % Lymph % (Auto) 15.2 L (15.5-49.0) % [place] % (Auto) 7.4 (1.0-12.0) % Eos % (Auto) 8.5 H (0.0-7.0) % Baso % (Auto) 0.6 (0.0-2.0) % Gran # 6.31 (1.80-8.00) K/mcL Lymph # (Auto) 1.40 L (1.50-4.80) K/mcL [place] # (Auto) 0.68 (0.10-0.90) K/mcL Eos # (Auto) 0.79 H (0.00-0.70) K/mcL Baso # (Auto) 0.06 (0.00-0.30) K/mcL VBG Lactic Acid 1.3 (0.5-2.0) mmol/L Sodium 130 L (133-145) mmol/L Potassium 5.2 H (3.3-5.1) mmol/L Chloride 93 L (96-108) mmol/L Carbon Dioxide 20 L (22-30) mmol/L Anion Gap 17.0 H (8-16) BUN 111 H* (8-23) mg/dl Creatinine 5.0 H (0.7-1.2) mg/dl GFR Calculation 11 Glucose 130 H (70-105) mg/dL Calcium 8.9 (8.6-10.4) mg/dl Total Bilirubin 0.3 (0.0-1.0) mg/dL AST 7 (0-37) U/l ALT < 5 (0-40) U/l Alkaline Phosphatase 92 (39-117) U/L Troponin T (0-0.03) ng/ml Total Protein 6.7 (5.9-8.4) gm/dL Albumin 3.3 (3.2-5.2) gm/dL Globulin 3.4 (2.2-3.7) gm/dL Albumin/Globulin Ratio 1.0 (1.0-2.3) Urine Color Urine Appearance Urine pH (5.0-9.0) Ur Specific [place] (1.000-1.035) Urine Protein (NEG) mg/dL Urine Glucose (UA) (NEG) mg/dL Urine Ketones (NEG) mg/dL Urine Occult Blood (<0.03) mg/dL Urine Nitrate (NEG) Urine Bilirubin (NEG) mg/dL Urine Urobilinogen (NEG) mg/dL Ur Leukocyte Esterase (NEG) /uL Urine RBC (0-1) /hpf Urine WBC (0-4) /hpf Ur Squamous Epith Cells (0-4) /hpf Urine Bacteria (0) /hpf Ur Culture Indicated? 08/14/19 08/14/19 Range/Units 11:11 12:44 WBC (4.50-11.00) K/mcL RBC (4.63-6.08) M/mcL Hgb (13.7-17.5) g/dL Hct (40.1-51.0) % MCV (80.0-100.0) fL MCH (26.0-34.0) pg MCHC (31.0-36.0) g/dL RDW (11.5-14.5) % Plt Count (140-440) K/mcL MPV (7.4-10.4) fL Gran % (38.0-78.0) % Lymph % (Auto) (15.5-49.0) % [place] % (Auto) (1.0-12.0) % Eos % (Auto) (0.0-7.0) % Baso % (Auto) (0.0-2.0) % Gran # (1.80-8.00) K/mcL Lymph # (Auto) (1.50-4.80) K/mcL [place] # (Auto) (0.10-0.90) K/mcL Eos # (Auto) (0.00-0.70) K/mcL Baso # (Auto) (0.00-0.30) K/mcL VBG Lactic Acid (0.5-2.0) mmol/L Sodium (133-145) mmol/L Potassium (3.3-5.1) mmol/L Chloride (96-108) mmol/L Carbon Dioxide (22-30) mmol/L Anion Gap (8-16) BUN (8-23) mg/dl Creatinine (0.7-1.2) mg/dl GFR Calculation Glucose (70-105) mg/dL Calcium (8.6-10.4) mg/dl Total Bilirubin (0.0-1.0) mg/dL AST (0-37) U/l ALT (0-40) U/l Alkaline Phosphatase (39-117) U/L Troponin T 0.24 H* (0-0.03) ng/ml Total Protein (5.9-8.4) gm/dL Albumin (3.2-5.2) gm/dL Globulin (2.2-3.7) gm/dL Albumin/Globulin Ratio (1.0-2.3) Urine Color Yellow Urine Appearance Cloudy Urine pH 5.0 (5.0-9.0) Ur Specific [place] 1.013 (1.000-1.035) Urine Protein 100 A (NEG) mg/dL Urine Glucose (UA) Negative (NEG) mg/dL Urine Ketones Neg (NEG) mg/dL Urine Occult Blood 0.03 A (<0.03) mg/dL Urine Nitrate Neg (NEG) Urine Bilirubin Neg (NEG) mg/dL Urine Urobilinogen Neg (NEG) mg/dL Ur Leukocyte Esterase 500 A (NEG) /uL Urine RBC 15 H (0-1) /hpf Urine WBC > 182 H (0-4) /hpf Ur Squamous Epith Cells 0 (0-4) /hpf Urine Bacteria Many A (0) /hpf Ur Culture Indicated? No - Radiology Data Radiology results reviewed: Yes I reviewed the patient's radiology results. Ordering Physician: Keyur Singleton PA-C Date of Service: 08/14/19 Procedure(s): XR chest 1V portable Accession Number(s): [id number] HISTORY: Hypertension, nausea, prior history of congestive heart failure FINDINGS: The lungs are clear and normally expanded. The pulmonary edema seen on the prior exam done on 02/10/19 has resolved. The heart size is now normal and there is no pleural effusion. There are calcified plaques in the right side of the neck. Moderate arthritis is present in the shoulders, right worse than left. IMPRESSION: No acute abnormality Interpreted and Authenticated by: Jasson Gutierrez 08/14/19 Disposition Pt seen by CASHIER ASSOCIATE/PA only: Yes Clinical Impression: DNR (do not resuscitate), Elevated troponin Acute on chronic renal failure Qualifiers: Acute renal failure type: unspecified Chronic kidney disease stage: stage 5, not on chronic dialysis Qualified Code(s): N17.9 - Acute kidney failure, unspecified; N18.5 - Chronic kidney disease, stage 5 Dementia Qualifiers: Dementia type: unspecified type Dementia behavioral disturbance: without behavioral disturbance Qualified Code(s): F03.90 - Unspecified dementia without behavioral disturbance Disposition: Xfer As Inpt ([facility]) Condition: Fair Additional Instructions: Patient is going be admitted to the hospital under the care of the hospitalist (Dr. Douglas). All further treatment decisions, modalities, and ultimate patient disposition will be carried out by Dr. Douglas. Referrals: Casey Young MD [Primary Care Provider] -
--- NOTE | 2019-08-14 11:23 | XRay Report ---
HISTORY: Hypertension, nausea, prior history of congestive heart failure FINDINGS: The lungs are clear and normally expanded. The pulmonary edema seen on the prior exam done on 02/10/19 has resolved. The heart size is now normal and there is no pleural effusion. There are calcified plaques in the right side of the neck. Moderate arthritis is present in the shoulders, right worse than left. IMPRESSION: No acute abnormality Interpreted and Authenticated by: Jasson Gutierrez 08/14/19
[2019-08-14 11:35] LABS: Basophils # (Auto) 0.06 K/mcL (0.00-0.30); Basophils % (Auto) 0.6 % (0.0-2.0); Eosinophils # (Auto) 0.79 K/mcL (0.00-0.70); Eosinophils % (Auto) 8.5 % (0.0-7.0); Granulocytes % (Auto) 68.3 % (38.0-78.0); Hematocrit 30.6 % (40.1-51.0); Hemoglobin 9.6 g/dL (13.7-17.5); Lymphocytes % (Auto) 15.2 % (15.5-49.0); Mean Cell Volume 87.2 fL (80.0-100.0); Mean Corpuscular HGB Conc 31.4 g/dL (31.0-36.0); Mean Platelet Volume 10.5 fL (7.4-10.4); Monocytes # (Auto) 0.68 K/mcL (0.10-0.90); Monocytes % (Auto) 7.4 % (1.0-12.0); Platelet Count 415 K/mcL (140-440); RBC 3.51 M/mcL (4.63-6.08); Red Cell Distribution Width 13.9 % (11.5-14.5); WBC 9.2 K/mcL (4.50-11.00)
[2019-08-14 11:55] LABS: ALT/SGPT < 5 U/l (0-40); AST/SGOT 7 U/l (0-37); Albumin 3.3 gm/dL (3.2-5.2); Alkaline Phosphatase 92 U/L (39-117); Bilirubin,Total 0.3 mg/dL (0.0-1.0); Calcium 8.9 mg/dl (8.6-10.4); Carbon Dioxide 20 mmol/L (22-30); Chloride 93 mmol/L (96-108); Globulin 3.4 gm/dL (2.2-3.7); Glomerular Filtration Rate 11; Glucose 130 mg/dL (70-105)
[2019-08-14] MEDS ORDERED: ASPIRIN 81 MG TAB.CHEW CHEWED ONE (11:57)
[2019-08-14 12:04] LABS: Blood Urea Nitrogen 111 mg/dl (8-23)
[2019-08-14 13:50] LABS: Appearance,Urine CLOUDY; Bacteria,Urine MANY /hpf (0); Bilirubin,Urine NEG (NEG); Color,Urine YELLOW; Culture Indicated,Urine NO; Glucose,Urine (UA) NEGATIVE (NEG); Ketones,Urine NEG (NEG); Leukocyte Esterase,Urine 500 /uL (NEG); Nitrate,Urine NEG (NEG); Protein,Urine 100 mg/dL (NEG); Specific Gravity,Urine 1.013 (1.000-1.035); Urine Blood 0.03 mg/dL (<0.03); Urine RBC 15 /hpf (0-1); Urine Squamous Epithelial Cell 0 /hpf (0-4); Urine WBC > 182 /hpf (0-4); Urobilinogen,Urine NEG (NEG)
--- NOTE | 2019-08-14 15:05 | Internal Med History&Physical ---
Medical - H&P: [facility] Patient information: Note initiated : 08/14/19 at 2:46 pm Service Date, if different from initiated Date: [] Patient: Magdi Berumen 69 y/o M admitted on for Low Blood Pressure And Nausea. Chief Complaint: [] Chief complaint: Hypotension, weakness History of present illness: Mr. Berumen is a 69 year old M resident of [facility] and carrying a history of type II/CVA/NYHA class III systolic heart failure with EF 29%/PVD with left lower extremity BKA and chronic disease who presents to the ER after being directed from Dr. Obregon lining stuffer office with elevated creatinine and hypotension in 70s. Initial work-up was consistent with creatinine 5, BUN 111, potassium 5.2 and troponin 0.24. UA significant pyuria. Patient also had associated substernal chest pain but EKG no evidence of ST changes. Subsequently cardiology was consulted by ER recommended tertiary center transfer for PCI intervention. Patient however refused and wanted to be a DNR comfort care and only wanted treatment for UTI. subsequently hospitalist service was consulted for admission At the time evaluation patient is alert and respond to commands. He confirmed that he would want to be comfort care would not want any treatment occluding IV fluids for management of coronary disease, elevated troponins or renal failure. He understands that not undergoing treatment may lead to his demise. At this time he would want to discuss his goals of care with his sister before arriving and further decision. With discussion happened in the presence of 2 other nursing staff. Review of systems Denies dysuria, diarrhea, headache but endorses to weakness and not feeling well over the last few days. Patient denies recent travel endorses to cough and sore throat. Denies fever. A 10 point review system was attempted and is negative except for ones cussed above Medical - H&P: PM Medical history: DM type II CAD NYHA class III systolic heart failure EF 10% History of left BKA Peripheral vascular disease Degenerative disease Chronic kidney disease Glaucoma Hypertension Pertinent family history: Noncontributory Social history: Lives at [facility] No history of smoking alcoholism Medical - H&P: Meds Home Medications Medication Instructions Recorded Confirmed Type Accu-Chek 1 each FS ACHS #30 strip 04/13/15 06/20/19 Rx Docusate Sodium [Colace] 100 mg PO BID #60 capsule 04/13/15 06/20/19 Rx HYDROcodone/APAP 5/325MG [[place] 1 tab PO Q4HP PRN #14 tab 05/30/18 06/20/19 Rx 5-325Mg] Acetaminophen [Pain Relief] 500 mg PO PRN PRN 01/31/19 06/20/19 History Ascorbate Calcium [Vitamin C] 500 mg PO DAILY 01/31/19 06/20/19 History Atorvastatin [Lipitor] 10 mg PO HS 01/31/19 06/20/19 History Calcium Carbonate/Vitamin D3 1 each PO DAILY 01/31/19 06/20/19 History [Calcium 500-Vit D3 200 Tablet] Clopidogrel Bisulfate [Plavix] 75 mg PO DAILY 01/31/19 06/20/19 History Dorzolamide 2% Ophth Drops 1 gtt OD TID 01/31/19 06/20/19 History [Trusopt 2% Ophth Drops] Ergocalciferol (Vitamin D2) 10,000 unit PO DAILY 01/31/19 06/20/19 History [Vitamin D2] Escitalopram [Lexapro] 10 mg PO DAILY 01/31/19 06/20/19 History Isosorbide Dinitrate [Isordil] 10 mg PO BID 01/31/19 06/20/19 History Latanoprost/Pf [Latanoprost 0.005% 1 gtt OU HS 01/31/19 06/20/19 History Eye Drop] Lisinopril [Zestril] 10 mg PO DAILY 01/31/19 06/20/19 History Multivit-Min/Iron/Folic Acid/K 1 each PO DAILY 01/31/19 06/20/19 History [Adults Multivitamin Tablet] Nitroglycerin [Nitrostat] 0.4 mg SL Q5M PRN 01/31/19 06/20/19 History Timolol 0.25% Ophth Drops 1 gtt OD BID 01/31/19 06/20/19 History [Timoptic 0.25% Ophth Drops] metFORMIN HCL [Metformin HCl ER] 750 mg PO DAILY 01/31/19 06/20/19 History Mupirocin Oint 2% [Bactroban Oint 1 dose TOPICAL BID #1 tube 05/03/19 06/20/19 Rx 2%] Aripiprazole [Abilify] 2 mg PO DAILY 06/04/19 06/20/19 History Bisacodyl [Dulcolax] 10 mg [place] DAILYP PRN 06/04/19 06/20/19 History Dulaglutide [Trulicity] 1.5 mg SQ WEEKLY 06/04/19 06/20/19 History Furosemide [Lasix] 40 mg PO DAILY 06/04/19 06/20/19 History Glucagon,Human Recombinant 1 mg IJ PRN PRN 06/04/19 06/20/19 History [Glucagon Emergency Kit] Magnesium Hydroxide [Milk of 2,400 mg PO PRN PRN 06/04/19 06/20/19 History Magnesia] Potassium Chloride [Klor-Con] 20 meq PO PRN PRN 06/04/19 06/20/19 History morphine SULFATE [Morphine Sulfate] 10 mg PO PRN PRN 06/04/19 06/20/19 History traMADol HCL [Ultram] 100 mg PO PRN PRN 06/04/19 06/20/19 History Accu-Chek 1 each FS ACHS strip 06/24/19 Rx Carvedilol [Coreg] 18.75 mg PO BIDCC #45 tab 06/24/19 Rx HYDROcodone/APAP 5/325MG [[place] 1 tab PO Q4HP PRN #30 tab 06/24/19 Rx 5-325Mg] Lactulose [Cephulac] 20 gm PO TIDP PRN oral.penny 06/24/19 Rx Allergies Allergy/AdvReac Type Severity Reaction Status Date / Time Cephalosporins AdvReac Mild Diarrhea Verified 08/14/19 10:43 Medical - H&P: Exam - Constitutional Vitals: Temp Pulse Resp BP Pulse Ox 96.4 F L 91 H 11 L 119/73 99 08/14/19 10:44 08/14/19 14:15 08/14/19 14:15 08/14/19 14:01 08/14/19 14:15 General appearance: no acute distress Exam: Alert oriented head nontraumatic Right eye blind, left eye partially blind Oral cavity dry No ear nose discharge Nonlabored breathing No obvious abdominal distention Pallor noted Left BKA stump breakdown, pictures documented in chart Skin scabs right monk Psych alert cooperative Neuro normal higher function Medical - H&P: Reslt - Labs CBC & Chem 7: 08/14/19 11:11 08/14/19 11:11 Labs: Short CBC 08/14/19 Range/Units 11:11 WBC 9.2 (4.50-11.00) K/mcL Hgb 9.6 L (13.7-17.5) g/dL Hct 30.6 L (40.1-51.0) % Plt Count 415 (140-440) K/mcL BMP 08/14/19 11:11 Sodium 130 L Potassium 5.2 H Chloride 93 L Carbon Dioxide 20 L BUN 111 H* Creatinine 5.0 H Glucose 130 H Calcium 8.9 Cardiac Enzymes 08/14/19 Range/Units 11:11 Troponin T 0.24 H* (0-0.03) ng/ml Liver Function 08/14/19 Range/Units 11:11 Total Bilirubin 0.3 (0.0-1.0) mg/dL AST 7 (0-37) U/l ALT < 5 (0-40) U/l Alkaline Phosphatase 92 (39-117) U/L Albumin 3.3 (3.2-5.2) gm/dL Urine 08/14/19 Range/Units 12:44 Urine Color Yellow Urine Appearance Cloudy Urine pH 5.0 (5.0-9.0) Ur Specific [place] 1.013 (1.000-1.035) Urine Protein 100 A (NEG) mg/dL Urine Glucose (UA) Negative (NEG) mg/dL Medical - H&P: A/P (1) Complicated UTI (urinary tract infection) Current visit: Yes Status: Acute * Complicated UTI-start antibiotic coverage if patient decides for treatment. At this time all treatments held as per patient request * Hypotension-secondary to sepsis/underlying low EF and likely volume depletion. We will plan on starting gentle crystalloids. Previous echo EF 29%. * Elevated troponins and chest pain-patient is a high risk ACS however refusing advanced treatment including PCI or transfer to tertiary center. Clearly understands risk including * Cardiorenal syndrome - Cr 5. BUN 111. Likely secondary to sepsis/volume depletion. Also underlying low EF with prerenal state * Hyperkalemia potassium 5.2. DC telemetry if patient does not want aggressive interventions * HTN-held meds until hypotension resolves * H/o CAD/PVD-with active chest pain and elevated troponin. Case was discussed with cardiology who recommended transfer for PCI. However patient does not want aggressive intervention and wants to be DNR comfort care without aggressive intervention. * History of NYHA class III systolic CHF with EF 29%-currently well compensated. However low EF as of echocardiogram * Right pontine ischemic CVA- On aspirin and Statin. * DM type II on basal prandial insulin. * Rt Eye blindness, left eye partial blindness * H/o Smoking * DNR Plan * High complexity inpatient admit * Await goals of care discussion, if patient agrees for treatment will continue as below otherwise will be transitioned to comfort care. * Repeat BMP * Gentle crystalloids * Antibiotic coverage and de-escalate based on sensitivities * Pre-existing medical condition management home meds except for antihypertensives * Nephrology consult
[2019-08-14] MEDS ORDERED: MAGNESIUM SULFATE 2 GM/50 ML BAG IV PRN (17:32)
[2019-08-14] MEDS ORDERED: DEXTROSE 31 GM ORAL.SUSP PO PRN (17:32)
[2019-08-14] MEDS ORDERED: MELATONIN 3 MG TABLET PO PRN (17:32)
[2019-08-14] MEDS ORDERED: cefTRIAXone 2 GM in DEXTROSE 5% IN WATER 50 ML IV SCH (17:32)
[2019-08-14] MEDS ORDERED: ACETAMINOPHEN 325 MG TABLET PO PRN (17:32)
[2019-08-14] MEDS ORDERED: POLYETHYLENE GLYCOL 3350 17 GM PACKET PO PRN (17:32)
[2019-08-14] MEDS ORDERED: BISACODYL 10 MG SUPP.RECT PR PRN (17:32)
[2019-08-14] MEDS ORDERED: ONDANSETRON 4 MG/2 ML VIAL IV PRN (17:32)
[2019-08-14] MEDS ORDERED: ACETAMINOPHEN 650 MG/65 ML BOTTLE IV PRN (17:32)
[2019-08-14] MEDS ORDERED: 0.9 % SODIUM CHLORIDE 1,000 ML IV SCH (17:32)
[2019-08-14] MEDS ORDERED: DEXTROSE 50% 50 ML VIAL IV PRN (17:32)
[2019-08-14] MEDS: INSULIN LISPRO 1 UNIT/0.01 ML UNIT SQ SCH (18:20)
[2019-08-14] MEDS ORDERED: LORazepam 2 MG/ML VIAL IV PRN (20:52)
[2019-08-14] MEDS: DOCUSATE SODIUM 100 MG CAPSULE PO SCH (20:59)
[2019-08-14] MEDS: HEPARIN 5,000 UNIT/ML VIAL SQ SCH (20:59)
[2019-08-14] MEDS ORDERED: SENNOSIDES/DOCUSATE SODIUM 1 TAB TABLET PO SCH (21:00)
[2019-08-14] MEDS: 0.9 % SODIUM CHLORIDE 10 ML SYRINGE IV SCH (23:35)
[2019-08-15] MEDS: INSULIN LISPRO 1 UNIT/0.01 ML UNIT SQ SCH ×2 (03:15→09:18)
[2019-08-15] MEDS ORDERED: MULTIVIT,THER IRON,CA,FA & MIN 1 TABLET PO SCH (09:00)
[2019-08-15] MEDS: DOCUSATE SODIUM 100 MG CAPSULE PO SCH (09:18)
[2019-08-15] MEDS: HEPARIN 5,000 UNIT/ML VIAL SQ SCH (09:18)
[2019-08-15] MEDS: 0.9 % SODIUM CHLORIDE 10 ML SYRINGE IV SCH (09:18)
[2019-08-15] MEDS ORDERED: LORazepam 2 MG/ML VIAL IV PRN (09:19)
--- NOTE | 2019-08-15 10:24 | Discharge Summary ---
Medical - DS: Prov Patient information: Note initiated : 08/15/19 at 10:22 am Service Date, if different from initiated Date: [] Patient: Magdi Berumen 69 y/o M admitted on 08/14/19 for Low Blood Pressure And Nausea. Chief Complaint: [] Date of admission: 08/14/19 17:24 Discharge date: 08/15/19 Primary care physician: Casey Young Consults: 08/14/19 14:51 Consult to Physician [CONS] Stat Comment: Consulting Provider: Karl Sandhu Reason For Exam: Physician to Consult Medical - DS: Meds - Discharge Medications Active and Home Medications: Home Medications Accu-Chek 1 each FS ACHS #30 strip 04/13/15 [Rx Confirmed 08/15/19 Last Taken 06/20/19] Docusate Sodium [Colace] 100 mg PO BID #60 capsule 04/13/15 [Rx Confirmed 08/15/19 Last Taken 06/19/19] HYDROcodone/APAP 5/325MG [Vendor 5-325Mg] 1 tab PO Q4HP PRN #14 tab 05/30/18 [Rx Confirmed 08/15/19 Last Taken 06/19/19] Acetaminophen [Pain Relief] 500 mg PO PRN PRN 01/31/19 [History Confirmed 08/15/19 Last Taken 1 Day Ago ~06/19/19 500 mg] Ascorbate Calcium [Vitamin C] 500 mg PO DAILY 01/31/19 [History Confirmed 08/15/19 Last Taken 06/19/19] Atorvastatin [Lipitor] 10 mg PO HS 01/31/19 [History Confirmed 08/15/19 Last Taken 06/19/19] Calcium Carbonate/Vitamin D3 [Calcium 500-Vit D3 200 Tablet] 1 each PO DAILY 01/31/19 [History Confirmed 08/15/19 Last Taken 06/19/19] Clopidogrel Bisulfate [Plavix] 75 mg PO DAILY 01/31/19 [History Confirmed 08/15/19 Last Taken 06/14/19] Dorzolamide 2% Ophth Drops [Trusopt 2% Ophth Drops] 1 gtt OD TID 01/31/19 [History Confirmed 08/15/19 Last Taken 06/19/19] Ergocalciferol (Vitamin D2) [Vitamin D2] 10,000 unit PO DAILY 01/31/19 [History Confirmed 08/15/19 Last Taken Unknown] Escitalopram [Lexapro] 10 mg PO DAILY 01/31/19 [History Confirmed 08/15/19 Last Taken 06/20/19] Isosorbide Dinitrate [Isordil] 10 mg PO BID 01/31/19 [History Confirmed 08/15/19 Last Taken 06/19/19] Latanoprost/Pf [Latanoprost 0.005% Eye Drop] 1 gtt OU HS 01/31/19 [History Confirmed 08/15/19 Last Taken 06/20/19] Multivit-Min/Iron/Folic Acid/K [Adults Multivitamin Tablet] 1 each PO DAILY 01/31/19 [History Confirmed 08/15/19 Last Taken 06/19/19] Nitroglycerin [Nitrostat] 0.4 mg SL Q5M PRN 01/31/19 [History Confirmed 08/15/19 Last Taken Unknown] Timolol 0.25% Ophth Drops [Timoptic 0.25% Ophth Drops] 1 gtt OD BID 01/31/19 [History Confirmed 08/15/19 Last Taken 06/20/19] metFORMIN HCL [Metformin HCl ER] 750 mg PO DAILY 01/31/19 [History Confirmed 08/15/19 Last Taken 06/19/19] Mupirocin Oint 2% [Bactroban Oint 2%] 1 dose TOPICAL BID #1 tube 05/03/19 [Rx Confirmed 08/15/19 Last Taken 06/19/19] Aripiprazole [Abilify] 2 mg PO DAILY 06/04/19 [History Confirmed 08/15/19 Last Taken 06/20/19] Bisacodyl [Dulcolax] 10 mg [place] DAILYP PRN 06/04/19 [History Confirmed 08/15/19 Last Taken 06/19/19] Dulaglutide [Trulicity] 1.5 mg SQ WEEKLY 06/04/19 [History Confirmed 08/15/19 Last Taken 06/15/19] Glucagon,Human Recombinant [Glucagon Emergency Kit] 1 mg IJ PRN PRN 06/04/19 [History Confirmed 08/15/19 Last Taken Unknown] Magnesium Hydroxide [Milk of Magnesia] 2,400 mg PO PRN PRN 06/04/19 [History Confirmed 08/15/19 Last Taken 06/19/19] Potassium Chloride [Klor-Con] 20 meq PO PRN PRN 06/04/19 [History Confirmed 08/15/19 Last Taken Unknown] morphine SULFATE [Morphine Sulfate] 10 mg PO PRN PRN 06/04/19 [History Confirmed 08/15/19 Last Taken 06/17/19] traMADol HCL [Ultram] 100 mg PO PRN PRN 06/04/19 [History Confirmed 08/15/19 Last Taken 06/19/19] Accu-Chek 1 each FS ACHS strip 06/24/19 [Rx Confirmed 08/15/19 Last Taken Unknown] Carvedilol [Coreg] 18.75 mg PO BIDCC #45 tab 06/24/19 [Rx Confirmed 08/15/19 Last Taken Unknown] Lactulose [Cephulac] 20 gm PO TIDP PRN oral.penny 06/24/19 [Rx Confirmed 08/15/19 Last Taken Unknown] Medical - DS: Hosp Hospital Course: Discharge diagnosis * Comfort care. Patient refused all medical interventions and hence being discharged back to SNF for end-of-life care. * Complicated UTI- At this time all treatments held as per patient request * Hypotension-secondary to sepsis/underlying low EF and likely volume depletion. Previous echo EF 29%. * Elevated troponins and chest pain-patient is a high risk ACS however refusing advanced treatment including PCI or transfer to tertiary center. Clearly understands risk including * Cardiorenal syndrome - Cr 5. BUN 111. * Hyperkalemia potassium 5.2. patient does not want aggressive interventions * HTN-held meds until hypotension resolves * H/o CAD/PVD-with active chest pain and elevated troponin. Case was discussed with cardiology who recommended transfer for PCI. However patient does not want aggressive intervention and wants to be DNR comfort care without aggressive intervention. * History of NYHA class III systolic CHF with EF 29%-currently well compensated. However low EF as of echocardiogram * Right pontine ischemic CVA- On aspirin and Statin. * DM type II on basal prandial insulin. * Rt Eye blindness, left eye partial blindness * H/o Smoking Brief hospital course Mr. Berumen is a 69 year old M resident of [facility] and carrying a history of type II/CVA/NYHA class III systolic heart failure with EF 29%/PVD with left lower extremity BKA and chronic disease who presents to the ER after being directed from Dr. Obregon farm consultant office with elevated creatinine and hypotension in 70s. Initial work-up was consistent with creatinine 5, BUN 111, potassium 5.2 and troponin 0.24. UA significant pyuria. Patient also had associated substernal chest pain but EKG no evidence of ST changes. Subsequently cardiology was consulted by ER recommended tertiary center transfer for PCI intervention. Patient however refused and wanted to be a DNR comfort care and only wanted treatment for UTI. subsequently hospitalist service was consulted for admission At the time evaluation patient is alert and respond to commands. He confirmed that he would want to be comfort care would not want any treatment occluding IV fluids for management of coronary disease, elevated troponins or renal failure. He understands that not undergoing treatment may lead to his demise. At this time he would want to discuss his goals of care with his sister before arriving and further decision. With discussion happened in the presence of 2 other nursing staff. 08/14-patient decided to discontinue all aggressive interventions including medications. Wants to be transferred back to [facility] for continued end-of-life care. He clearly understands choosing not to be treated can ultimately lead to his demise Discharge diagnosis: . - Time Spent with Patient Total time spent providing and/or coordinating discharge services: Greater than 30 minutes Medical - DS: Exam - Constitutional Vitals: Vital Signs Temp Pulse Pulse Resp BP BP Pulse Ox 08/15/19 08:00 97.4 F 77 16 93/52 99 08/14/19 19:48 97.6 F 93 H 16 123/74 100 08/14/19 17:32 98.4 F 94 H 16 99/71 92 08/14/19 17:24 16 08/14/19 17:01 90 14 97/60 99 08/14/19 16:46 17 112/75 08/14/19 16:33 17 08/14/19 16:31 13 117/69 08/14/19 16:16 13 110/68 08/14/19 16:01 13 104/64 08/14/19 15:46 117/68 08/14/19 15:31 94 H 12 122/69 99 08/14/19 15:20 94 H 15 99 08/14/19 15:17 94 H 12 115/81 100 08/14/19 15:01 95 H 15 112/69 97 08/14/19 14:46 104/66 03/25/20 14:31 93 H 114/69 100 08/14/19 14:16 91 H 15 103/67 100 08/14/19 14:15 91 H 11 L 99 08/14/19 14:01 94 H 15 119/73 99 08/14/19 13:46 90 13 128/77 100 08/14/19 13:31 94 H 18 128/81 100 08/14/19 13:16 90 17 123/77 100 08/14/19 13:01 118/70 08/14/19 12:55 88 17 100 08/14/19 12:46 95 H 13 114/74 100 08/14/19 12:31 11 L 115/78 08/14/19 12:16 95 H 16 114/77 100 08/14/19 12:15 94 H 15 100 08/14/19 12:06 86 15 110/73 100 08/14/19 12:01 85 16 108/68 100 08/14/19 11:56 16 108/76 08/14/19 11:51 10 L 108/69 08/14/19 11:46 84 13 106/66 100 08/14/19 11:41 83 11 L 104/64 100 08/14/19 11:36 85 13 100/62 100 08/14/19 11:31 83 18 99/61 100 08/14/19 11:26 82 15 98/59 100 08/14/19 11:21 82 0 L 97/62 100 08/14/19 11:16 92/61 08/14/19 11:15 81 0 L 95/59 99 08/14/19 11:11 81 12 89/60 100 08/14/19 11:07 17 82/55 08/14/19 11:06 15 78/56 08/14/19 11:05 18 08/14/19 11:04 16 79/61 08/14/19 11:02 15 73/53 08/14/19 10:44 96.4 F L 81 16 93/60 100 Intake and Output 08/14/19 08/15/19 08/15/19 21:59 05:59 13:59 Intake Total 0 Output Total 0 Balance 0 Intake: Oral 0 Output: Void Amount 0 Other: Stool Size Smear Stool Color Brown # of times incontinent of 1 Bowels Weight 146 lb 14.4 oz Medical - DS: Data Labs on day of discharge: Labs from last 24 hours 08/14/19 08/14/19 08/14/19 12:44 11:11 11:11 WBC RBC Hgb Hct MCV MCH MCHC RDW Plt Count MPV Gran % Lymph % (Auto) Hall % (Auto) Eos % (Auto) Baso % (Auto) Gran # Lymph # (Auto) Hall # (Auto) Eos # (Auto) Baso # (Auto) VBG Lactic Acid 1.3 Sodium Potassium Chloride Carbon Dioxide Anion Gap BUN Creatinine GFR Calculation Glucose Calcium Total Bilirubin AST ALT Alkaline Phosphatase Troponin T 0.24 H* Total Protein Albumin Globulin Albumin/Globulin Ratio Urine Color Yellow Urine Appearance Cloudy Urine pH 5.0 Ur Specific [place] 1.013 Urine Protein 100 A Urine Glucose (UA) Negative Urine Ketones Neg Urine Occult Blood 0.03 A Urine Nitrate Neg Urine Bilirubin Neg Urine Urobilinogen Neg Ur Leukocyte Esterase 500 A Urine RBC 15 H Urine WBC > 182 H Ur Squamous Epith Cells 0 Urine Bacteria Many A Ur Culture Indicated? No 08/14/19 08/14/19 11:11 11:11 WBC 9.2 RBC 3.51 L Hgb 9.6 L Hct 30.6 L MCV 87.2 MCH 27.4 MCHC 31.4 RDW 13.9 Plt Count 415 MPV 10.5 H Gran % 68.3 Lymph % (Auto) 15.2 L Hall % (Auto) 7.4 Eos % (Auto) 8.5 H Baso % (Auto) 0.6 Gran # 6.31 Lymph # (Auto) 1.40 L Hall # (Auto) 0.68 Eos # (Auto) 0.79 H Baso # (Auto) 0.06 VBG Lactic Acid Sodium 130 L Potassium 5.2 H Chloride 93 L Carbon Dioxide 20 L Anion Gap 17.0 H BUN 111 H* Creatinine 5.0 H GFR Calculation 11 Glucose 130 H Calcium 8.9 Total Bilirubin 0.3 AST 7 ALT < 5 Alkaline Phosphatase 92 Troponin T Total Protein 6.7 Albumin 3.3 Globulin 3.4 Albumin/Globulin Ratio 1.0 Urine Color Urine Appearance Urine pH Ur Specific [place] Urine Protein Urine Glucose (UA) Urine Ketones Urine Occult Blood Urine Nitrate Urine Bilirubin Urine Urobilinogen Ur Leukocyte Esterase Urine RBC Urine WBC Ur Squamous Epith Cells Urine Bacteria Ur Culture Indicated? Medical - DS: A/P - Patient/Caregiver Discharge Instructions Activity: increase activity as tolerated, other (As per comfort) Diet: Regular Diet (Per comfort) Additional Instructions: All activities/dietary interventions directed towards end-of-life and comfort - Problem Maintenance (1) Complicated UTI (urinary tract infection) Status: Acute - Follow up Plan Follow up with: Casey Young MD [Primary Care Provider] - (Follow up as needed.) Disposition: Xfer SNF Care Plan Goals: This discharge packet is provided to you to help keep you informed about your care. We want to ensure you get everything you need when you go home. You will also be receiving a call from us in a few days to follow up with you and see how you are doing since your discharge. This gives us a chance to listen to any concerns you maybe experiencing since you were discharged or any additional needs you may have, as well as providing us feedback on your care experience. We strive to always provide excellent care and thank you for your feedback and for choosing [facility]. Prognosis: Serious Rehab Potential: Undetermined I certify that the patient requires SNF services: Yes Overall status at discharge: patient is not back to baseline Medical - DS: Qual - VTE Deep Vein Thrombosis/Pulmonary Embolism Present on Admission: No
[2019-08-15] MEDS ORDERED: 0.9 % SODIUM CHLORIDE 10 ML SYRINGE IV SCH (14:00)
== END 2019-08-15 11:45 | DRG 951 ==
LOC: ED 10:42 → MEDSUR 17:24
PROVIDERS: ADMIT Internal Medicine; ATTEND Internal Medicine